=== PATIENT | female | born 1970 | race Caucasian/White ===

== ENCOUNTER 2018-02-21 12:09 | Emergency (ER) | END 2018-02-21 14:10 | disposition home or self-care (01) ==

== ENCOUNTER 2019-01-26 09:06 | Inpatient (IN) | payer BC, MEDICAID ==
[~2019-01-26] VITALS: Ht 157.5 cm; Wt 91.8 kg
[~2019-01-26 09:06] MED LIST: CEPH-443 PO; NO MEDS; PHEN-537 PO
[2019-01-26] MEDS ORDERED: morphine 2 MG INJ IV STA (13:11)
[2019-01-26] MEDS ORDERED: metroNIDAZOLE 500 MG/NS (PMX) 100 ML IVPB ONE (13:30)
[2019-01-26] MEDS ORDERED: PIPER-TAZO 3.375 GM IV (PMX) 100 ML IVPB ONE (13:30)
[2019-01-26] MEDS ORDERED: SOD CHLORIDE 0.9% 500 ML IV ONE (13:30)
--- NOTE | 2019-01-26 13:32 | ERD ---
ER Documentation Chief Complaint Chief Complaint AP X 1 WEEK HPI 48-year-old female presents the emergency department complaining of abdominal pain. Patient was in her usual state of health until approximately 1 week ago. At that time, she developed a left lower quadrant abdominal pain. She is having worsening left lower quadrant abdominal pain over the course of the week. She reports no fevers or chills. She reports no blood in her stool or diarrhea. She reports nausea with occasional nonbilious, nonbloody emesis. She reports no urinary or gynecologic symptoms. Currently she reports her pain is moderate to severe. ROS All systems reviewed and are negative except as per history of present illness. Medications Home Meds Discontinued Reported Medications [No Meds] No Conflict Check 05/12/14 Discontinued Scripts Cephalexin* (Keflex*) 500 Mg Capsule, 500 MG PO QID for 7 Days, CAP Prov:MARY CRANDALL PA-C 02/21/18 Phenazopyridine Hcl* (Pyridium*) 100 Mg Tab, 100 MG PO TID PRN for URINARY PAIN, #8 TAB Prov:MARY CRANDALL PA-C 02/21/18 Allergies Allergies: Coded Allergies: No Known Drug Allergy (Verified Allergy, Unknown, 01/26/19) PMhx/Soc History of Surgery: No (CHOLECYSTECTOMY, C-SECITON) Anesthesia Reaction: No Hx Neurological Disorder: No Hx Respiratory Disorders: No Hx Cardiac Disorders: No Hx Psychiatric Problems: No Hx Miscellaneous Medical Probl: Yes (diverticulosis) Hx Alcohol Use: Yes (occassional) Hx Substance Use: No Hx Tobacco Use: No Smoking Status: Never smoker FmHx Noncontributory for chief complaint Physical Exam Vitals Vital Signs Date Temp Pulse Resp B/P (MAP) Pulse Ox O2 O2 Flow FiO2 Time Delivery Rate 01/26/19 98.0 73 18 141/94 100 Room Air 11:58 (110) 01/26/19 97.9 88 18 137/92 99 09:13 (107) Physical Exam GENERAL: The patient is well developed and appropriate for usual state of health in no apparent distress HEENT: Pupils equal, round, and reactive to light. EOMI. There is no scleral icterus. NECK: C-spine is soft and supple, there is no meningismus. There is no cervical lymphadenopathy. LUNGS: Clear to auscultation bilaterally. There are no rales, wheezes or rhonchi. HEART: Regular rate and rhythm, no murmurs, clicks, rubs or gallops. ABDOMEN: Left lower quadrant abdominal pain. Patient has rebound with no guarding. EXTREMITIES: There is no peripheral cyanosis or edema. No focal swelling or erythema. NEURO: The patient moves all four extremities with 5/5 strength. Cranial nerves II - XII are intact. Normal gait. Alert and oriented SKIN: There is no apparent rash or petechiae. HEME/LYMPHATIC: There is no evidence of excessive bruising or lymphedema. PSYCHIATRIC: The patient does not appear anxious or depressed. Result Diagram: 01/26/19 1152 01/26/19 1152 Results 24 hrs Laboratory Tests Test 01/26/19 11:52 01/26/19 11:56 01/26/19 11:58 White Blood Count 11.8 10^3/ul Red Blood Count 4.97 10^6/ul Hemoglobin 14.2 g/dl Hematocrit 43.6 % Mean Corpuscular Volume 87.7 fl Mean Corpuscular Hemoglobin 28.6 pg Mean Corpuscular 32.6 g/dl Hemoglobin Concent Red Cell Distribution Width 12.3 % Platelet Count 303 10^3/UL Mean Platelet Volume 9.7 fl Immature Granulocytes % 0.500 % Neutrophils % 74.9 % Lymphocytes % 16.0 % Monocytes % 5.6 % Eosinophils % 2.6 % Basophils % 0.4 % Nucleated Red Blood Cells % 0.0 /100WBC Immature Granulocytes # 0.060 10^3/ul Neutrophils # 8.8 10^3/ul Lymphocytes # 1.9 10^3/ul Monocytes # 0.7 10^3/ul Eosinophils # 0.3 10^3/ul Basophils # 0.1 10^3/ul Nucleated Red Blood Cells # 0.0 10^3/ul Urine Color YELLOW Urine Clarity CLEAR Urine pH 6.0 Urine Specific [place] 1.006 Urine Ketones 1+ mg/dL Urine Nitrite NEGATIVE mg/dL Urine Bilirubin NEGATIVE mg/dL Urine Urobilinogen NEGATIVE mg/dL Urine Leukocyte Esterase NEGATIVE Dilshad/ul Urine Hemoglobin NEGATIVE mg/dL Urine Glucose NEGATIVE mg/dL Urine Total Protein NEGATIVE mg/dl Sodium Level 145 mmol/L Potassium Level 3.6 mmol/L Chloride Level 105 mmol/L Carbon Dioxide Level 26 mmol/L Anion Gap 14 Blood Urea Nitrogen 8 mg/dl Creatinine 0.66 mg/dl Est Glomerular Filtrat > 60 mL/min Rate mL/min Glucose Level 94 mg/dl Calcium Level 9.6 mg/dl Total Bilirubin 0.4 mg/dl Direct Bilirubin 0.00 mg/dl Indirect Bilirubin 0.4 mg/dl Aspartate Amino Transf (AST/SGOT) 31 IU/L Alanine 21 IU/L Aminotransferase (ALT/SGPT) Alkaline Phosphatase 133 IU/L Total Protein 8.4 g/dl Albumin 4.5 g/dl Globulin 3.90 g/dl Albumin/Globulin Ratio 1.15 Lipase 136 U/L Bedside Urine pH (LAB) 6.0 Bedside Urine Protein (LAB) Negative Bedside Urine Glucose (UA) Negative Bedside Urine Ketones (LAB) 1+ Bedside Urine Blood Negative Bedside Urine Nitrite (LAB) Negative Bedside Urine Leukocyte Esterase Negative (L POC Beta HCG, Qualitative NEGATIVE Current Medications Medications Dose Sig/Kris Start Time Status Last (Trade) Ordered Route PRN Stop Time Admin Dose Reason Admin Morphine 2 mg ONCE STAT 01/26/19 DC Sulfate IV 13:11 (morphine) 01/26/19 13:12 100 ml @ ONCE ONCE 01/26/19 Metronidazole 100 mls/hr IVPB 13:30 01/26/19 14:29 Piperacillin 100 ml @ ONCE ONCE 01/26/19 Sod/ 200 mls/hr IVPB 13:30 Tazobactam 01/26/19 13:59 Sod Sodium 500 ml @ Q1H ONCE 01/26/19 Chloride 500 mls/hr IV 13:30 01/26/19 14:29 Procedures/MDM Patient was taken to a room, seen and evaluated. Comfort measures were initiated. Diagnostic tests were ordered and reviewed. 3 LEAD RHYTHM STRIP: Normal sinus rhythm without ectopy RADIOLOGY: Reviewed with the radiologist CONSULTATION: Hospitalist was notified for admission. General surgeon was notified after CT scan was appreciated at 1330 REEVALUATION: Serial examinations of the abdomen remained without diffuse peritonitis. Diagnostic tests were discussed with the patient and arrangements were made for hospitalization MEDICAL DECISION MAKIN-year-old female presents with abdominal pain of uncertain etiology. She has a history of diverticulitis and her diagnostic t ests demonstrate evidence of ongoing diverticulitis with a fairly significant inflammatory burden. She has free fluid but no diffuse peritonitis. Patient will be admitted to the hospital for IV antibiotics, fluids, pain control as well as surgical consultation Departure Diagnosis: Primary Impression: Diverticulitis Condition: Fair [place] GOMEZ Jan 26, 2019 13:32
[2019-01-26] MEDS ORDERED: ALBUTEROL/IPRATROPIUM (NEB) 3 ML AMP HHN PRN (15:00)
[2019-01-26] MEDS ORDERED: DOCUSATE SODIUM 100 MG CAP PO PRN (15:00)
[2019-01-26] MEDS ORDERED: ACETAMINOPHEN 325 MG TAB PO PRN (15:00)
[2019-01-26] MEDS ORDERED: MAGNESIUM HYDROXIDE 30ML CUP PO PRN (15:00)
[2019-01-26] MEDS ORDERED: NITROGLYCERIN (SL) 0.4 MG TAB SL PRN (15:00)
[2019-01-26] MEDS ORDERED: ONDANSETRON 4 MG INJ IV PRN (15:00)
[2019-01-26] MEDS ORDERED: NACL 0.9% 3 ML SYG IV SCH (15:00)
[2019-01-26] MEDS ORDERED: LORAZEPAM 2 MG INJ IV PRN (15:00)
[2019-01-26] MEDS ORDERED: hydrALAzine 20 MG INJ IV PRN (15:00)
[2019-01-26] MEDS: SOD CHLORIDE 0.9% 1,000 ML IV SCH (15:51)
--- NOTE | 2019-01-26 16:21 | HP ---
DATE OF ADMISSION: 01/26/2019 IDENTIFICATION: This is a 48-year-old female. CHIEF COMPLAINT: Abdominal pain. HISTORY OF PRESENT ILLNESS: A 48-year-old female with past medical history of prior diverticulitis, cholecystectomy and who has been having abdominal pain. The patient says the symptoms have been going on for about the last 6 to 7 days. She has noted the pain in the left lower quadrant are a. Denies any fevers or chills. No upper or lower GI bleeding. She has had some mild nausea with s ome nonbilious, nonbloody vomiting symptoms occasionally. No chest pain or shortness of breath. No diarrhea or constipation. When she came in today, she was found on CT scan of abdomen and pelvis wit h marked inflammation involving the proximal to mid sigmoid colon with diverticula and adjacent fat s tranding and free fluid consistent with acute diverticulitis. There was also adjacent free air and l oculated fluid consistent with perforation and probable phlegmon, early developing abscess measuring 4.3 x 3.5 cm as well as another one of 2.4 x 1.5 cm and a call was made out to the general surgeon to come evaluate the patient for that. The patient was also given IV antibiotics and pain control medi cations and IV fluids in the ER. PAST MEDICAL HISTORY: As above. HOME MEDICATIONS: Unknown. ALLERGIES: NO KNOWN DRUG ALLERGIES. PAST SURGICAL HISTORY: Cholecystectomy, in the past. SOCIAL HISTORY: Occasional alcohol use. Denies any IV drug abuse or smoking history. FAMILY HISTORY: Noncontributory. PHYSICAL EXAMINATION: VITAL SIGNS: Today, T-max 98.0, pulse 73 to 88, respirations 18, blood pressure 141/94, saturating a t 100% room air. GENERAL: The patient is lying in bed, slightly obese, but otherwise alert, in no acute distress. HEENT: Pupils are equal, round, react to light. Extraocular muscles are intact. NECK: Supple. No thyromegaly. LUNGS: Clear to auscultation bilaterally. CARDIOVASCULAR: S1, S2 heard. No rubs, no gallops. ABDOMEN: Positive tenderness to palpation in left lower quadrant area. Mild rebound, but no guardin g. Normal bowel sounds otherwise. MUSCULOSKELETAL: No lower extremity edema bilaterally. NEUROLOGIC: No focal deficits. LABORATORIES: WBC 11.8, hemoglobin 14.2, hematocrit 43.6, platelets 303. The comprehensive metaboli c panel is essentially normal. Lipase is normal. UA shows negative nitrites, negative leukocyte est erase. Coags are normal except the PTT is a little high at 38.8. IMAGING: We mentioned CT of the abdomen and pelvis findings. ASSESSMENT AND PLAN: A 48-year-old female with abdominal pain for about 1 week with prior history of diverticulitis, now with findings of again diverticulitis with possible perforation. 1. Abdominal pain. Again secondary to diverticulitis with possible perforation and abscess formatio n. Admit the patient. Keep her n.p.o. Give her IV fluids, pain control medications. Check TSH, A1 c, lipid panel. Get a surgery consult. We will discuss with them about the need for medical managem ent versus possible operative repair given that there is a perforation. Again, vital signs are stabl e however presently. 2. Hypertension. Blood pressure is stable. Continue to monitor for now. She is on hydralazine p.r .n. systolic greater than 160. 3. Deep venous thrombosis prophylaxis, heparin subcutaneously. Dictated By: CASSY MONSALVE/WHITNEY Conf#: [id number] DID#: [id number] CC: KAMRYN LANE MD; TERRY WILSON MD;*[facility]*
--- NOTE | 2019-01-26 17:17 | CONS ---
Assessment/Plan Assessment/Plan Hospital Course (Demo Recall) 1. Proximal to mid sigmoid diverticulitis with adjacent free air and loculated fluid consistent with perforation and probable phlegmon/early developing abscess, 4.3 x 3.5 and 2.4 x 1.5 cm. -No emergent surgical intervention necessary at this time we will continue to closely monitor. -Antibiotics -GI consult (was previously seen by Dr. Jiménez) -n.p.o. 2. Abdominal pain: -Pain management 3. Mild leukocytosis: Likely 2/2 #1 -As above 4. Obesity: -diet and exercise optimization -encourage weight loss Thank you. Patient seen and examined in collaboration with Dr. Cal Frazier. Consultation Date/Type/Reason Admit Date/Time Date of Consultation: Jan 26, 2019 Type of Consult Surgical Reason for Consultation Abdominal pain, perforated diverticulitis Requesting Provider: [place] GOMEZ Date/Time of Note DATE: 01/26/19 TIME: 17:00 Hx of Present Illness Dyan Toussaint is a 48-year-old woman with past medical history of abdominal pain, diverticulitis with abscesses that were treated with antibiotics, Obesity, previous cholecystectomy, and tubal ligation who presented to the ED with a one-week history of abdominal pain. Abdominal pain is predominantly on the left lower quadrant stabbing in nature. She has reportedly she has had previous hospitalizations for similar events and has been experiencing interm ittent left lower abdominal pain that she manages conservatively with liquid diet. She has not followed up with any specialist or a regular doctor outside of the hospital. Associated symptoms include occasional nausea and vomiting, nonbloody emesis. She denies fevers, chills, congested cough, chest pain, palpitations, change in bowel or bladder habits. CT abdomen was performed showing marketed inflammation involving the proximal to mid sigmoid colon with diverticuli and adjacent fat stranding and free fluid consistent with acute diverticulitis with adjacent free air and loculated fluid consistent with perforation and probable phlegmon/early developing abscess, 4.3 x 3.5 and 2.4 x 1.5 cm. Laboratory findings significant for mild leukocytosis with WBC of 11.8. General surgery was asked to evaluate. 12 point review of systems was performed is negative except as stated in HPI. Past Medical History As above Home Meds Discontinued Reported Medications [No Meds] No Conflict Check 05/12/14 Discontinued Scripts Cephalexin* (Keflex*) 500 Mg Capsule, 500 MG PO QID for 7 Days, CAP Prov:MARY CRANDALL PA-C 02/21/18 Phenazopyridine Hcl* (Pyridium*) 100 Mg Tab, 100 MG PO TID PRN for URINARY PAIN, #8 TAB Prov:MARY CRANDALL PA-C 02/21/18 Medications Current Medications IV Flush (NS 3 ml) 3 ml PER PROTOCOL IV ; Start 01/26/19 at 15:00 Ondansetron HCl (Zofran Inj) 4 mg Q6H PRN IV NAUSEA/VOMITING; Start 01/26/19 at 15:00 Acetaminophen (Tylenol Tab) 650 mg Q6H PRN PO .PAIN 1-3 OR TEMP; Start 01/26/19 at 15:00 Acetaminophen/ Hydrocodone Bitart ([place] (5/325)) 1 tab Q6H PRN PO .MOD PAIN 4- 6; Start 01/26/19 at 15:00 Morphine Sulfate (morphine) 2 mg Q4H PRN IV .SEVERE PAIN 7-10; Start 01/26/19 at 15:00 Docusate Sodium (Colace) 100 mg Q12H PRN PO .CONSTIPATION; Start 01/26/19 at 15:00 Magnesium Hydroxide (Milk Of Mag) 30 ml DAILY PRN PO .CONSTIPATION; Start 01/26/19 at 15:00 Heparin Sodium (Porcine) (Heparin (5000 Units/1ml)) 5,000 unit Q12 SC ; Start 01/26/19 at 21:00 Lorazepam (Ativan) 0.5 mg Q6H PRN IV ANXIETY; Start 01/26/19 at 15:00 Sodium Chloride 1,000 ml @ 100 mls/hr Q10H IV Last administered on 01/26/19at 15:51; Admin Dose 100 MLS/HR; Start 01/26/19 at 14:31 Albuterol/ Ipratropium (Duoneb) 3 ml Q4H RESP THERAPY PRN HHN SHORTNESS OF BREATH; Start 01/26/19 at 15:00 Piperacillin Sod/ Tazobactam Sod 100 ml @ 200 mls/hr Q6 IVPB ; Start 01/26/19 at 18:00 Hydralazine HCl (Apresoline) 10 mg Q6H PRN IV ELEVATED BLOOD PRESSURE; Start 01/26/19 at 15:00 Nitroglycerin (Nitroglycerin (Sl Tab) 0.4 Mg) 1 tab Q5M PRN SL ANGINA; Start 01/26/19 at 15:00 Allergies: Coded Allergies: No Known Drug Allergy (Verified Allergy, Unknown, 01/26/19) Past Surgical History As above Family History Significant Family History: no pertinent family hx Social History Smoking Status: Never smoker Exam/Review of Systems Exam Vitals Vital Signs Date Temp Pulse Resp B/P (MAP) Pulse Ox O2 O2 Flow FiO2 Time Delivery Rate 01/26/19 98.0 86 16 99/77 (84) 100 Room Air 15:00 Constitutional: alert, oriented Psych: nl mood/affect; No anxiety Head: normocephalic, atraumatic Eyes: nl conjunctiva, EOMI, nl lids, nl sclera ENMT: nl external ears & nose, nl lips & teeth, mucosa pink and moist Neck: supple, non-tender Respiratory: normal air movement; No congested cough, No labored breathing Cardiovascular: regular rate and rhythm, nl pulses; No edema Gastrointestinal: soft, distended, tender (Left lower quadrant) Genitourinary - Female: nl external genitalia Musculoskeletal: nl extremities to inspection, nl gait and stance; No joint tenderness Extremities: normal pulses; No edema Neurological: nl mental status, nl speech, nl strength Skin: No rash or lesions Lymph: nl lymph nodes Results Result Diagram: 01/26/19 1152 01/26/19 1152 Results 24hrs Laboratory Tests Test 01/26/19 11:52 01/26/19 11:56 01/26/19 11:58 White Blood Count 11.8 H Red Blood Count 4.97 Hemoglobin 14.2 Hematocrit 43.6 Mean Corpuscular Volume 87.7 Mean Corpuscular Hemoglobin 28.6 L Mean Corpuscular Hemoglobin Concent 32.6 Red Cell Distribution Width 12.3 Platelet Count 303 Mean Platelet Volume 9.7 Immature Granulocytes % 0.500 H Neutrophils % 74.9 Lymphocytes % 16.0 Monocytes % 5.6 Eosinophils % 2.6 Basophils % 0.4 Nucleated Red Blood Cells % 0.0 Immature Granulocytes # 0.060 H Neutrophils # 8.8 H Lymphocytes # 1.9 Monocytes # 0.7 Eosinophils # 0.3 Basophils # 0.1 Nucleated Red Blood Cells # 0.0 Prothrombin Time 12.3 Prothrombin Time Ratio 1.0 INR International Normalized Ratio 0.90 Activated Partial Thromboplast Time 38.8 H Urine Color YELLOW Urine Clarity CLEAR Urine pH 6.0 Urine Specific [place] 1.006 Urine Ketones 1+ H Urine Nitrite NEGATIVE Urine Bilirubin NEGATIVE Urine Urobilinogen NEGATIVE Urine Leukocyte Esterase NEGATIVE Urine Hemoglobin NEGATIVE Urine Glucose NEGATIVE Urine Total Protein NEGATIVE Sodium Level 145 H Potassium Level 3.6 Chloride Level 105 Carbon Dioxide Level 26 Anion Gap 14 H Blood Urea Nitrogen 8 Creatinine 0.66 Est Glomerular Filtrat Rate mL/min > 60 Glucose Level 94 Calcium Level 9.6 Total Bilirubin 0.4 Direct Bilirubin 0.00 Indirect Bilirubin 0.4 Aspartate Amino Transf (AST/SGOT) 31 Alanine Aminotransferase (ALT/SGPT) 21 Alkaline Phosphatase 133 H Total Protein 8.4 H Albumin 4.5 Globulin 3.90 H Albumin/Globulin Ratio 1.15 Lipase 136 Free Thyroxine 1.07 Bedside Urine pH (LAB) 6.0 Bedside Urine Protein (LAB) Negative Bedside Urine Glucose (UA) Negative Bedside Urine Ketones (LAB) 1+ H Bedside Urine Blood Negative Bedside Urine Nitrite (LAB) Negative Bedside Urine Leukocyte Esterase (L Negative POC Beta HCG, Qualitative NEGATIVE Medications Medication Current Medications IV Flush (NS 3 ml) 3 ml PER PROTOCOL IV ; Start 01/26/19 at 15:00 Ondansetron HCl (Zofran Inj) 4 mg Q6H PRN IV NAUSEA/VOMITING; Start 01/26/19 at 15:00 Acetaminophen (Tylenol Tab) 650 mg Q6H PRN PO .PAIN 1-3 OR TEMP; Start 01/26/19 at 15:00 Acetaminophen/ Hydrocodone Bitart ([place] (5/325)) 1 tab Q6H PRN PO .MOD PAIN 4- 6; Start 01/26/19 at 15:00 Morphine Sulfate (morphine) 2 mg Q4H PRN IV .SEVERE PAIN 7-10; Start 01/26/19 at 15:00 Docusate Sodium (Colace) 100 mg Q12H PRN PO .CONSTIPATION; Start 01/26/19 at 15:00 Magnesium Hydroxide (Milk Of Mag) 30 ml DAILY PRN PO .CONSTIPATION; Start 01/26/19 at 15:00 Heparin Sodium (Porcine) (Heparin (5000 Units/1ml)) 5,000 unit Q12 SC ; Start 01/26/19 at 21:00 Lorazepam (Ativan) 0.5 mg Q6H PRN IV ANXIETY; Start 01/26/19 at 15:00 Sodium Chloride 1,000 ml @ 100 mls/hr Q10H IV Last administered on 01/26/19at 1 5:51; Admin Dose 100 MLS/HR; Start 01/26/19 at 14:31 Albuterol/ Ipratropium (Duoneb) 3 ml Q4H RESP THERAPY PRN HHN SHORTNESS OF BREATH; Start 01/26/19 at 15:00 Piperacillin Sod/ Tazobactam Sod 100 ml @ 200 mls/hr Q6 IVPB ; Start 01/26/19 at 18:00 Hydralazine HCl (Apresoline) 10 mg Q6H PRN IV ELEVATED BLOOD PRESSURE; Start 01/26/19 at 15:00 Nitroglycerin (Nitroglycerin (Sl Tab) 0.4 Mg) 1 tab Q5M PRN SL ANGINA; Start 01/26/19 at 15:00 EDITH TRENT NP Jan 26, 2019 17:12
[2019-01-26] MEDS: PIPER-TAZO 3.375 GM IV (PMX) 100 ML IVPB SCH ×2 (18:55→23:38)
[2019-01-26 19:56] VITALS: Ht 157.5 cm; Wt 91.8 kg
[2019-01-26 20:00] VITALS: BP 124/79; PULSE 85; RESP 19
[2019-01-26] MEDS: HEPARIN 5,000 UNIT/1 ML VIAL SC SCH (21:00)
--- NOTE | 2019-01-26 22:42 | CONS ---
DATE OF ADMISSION: 01/26/2019 DATE OF CONSULTATION: 01/26/2019 REASON FOR CONSULTATION: Antibiotic management. HISTORY OF PRESENT ILLNESS: Dyan Toussaint is a 48-year-old female well known to us from previous admis eric, who presents to the emergency room with abdominal pain. She was well until 1 week ago. She th en developed left lower quadrant abdominal pain and is having worsening left lower quadrant abdominal pain over the course of the past week. She has no fever. She reports nausea with occasional nonbil ious, nonbloody emesis. Her past problems include status post cholecystectomy, status post . On admission, her white count was 11.8, H and H of 14.2/43.6, platelet count 303,000; BUN and creatin ine 8/0.66. The patient has a past medical history of diverticulitis on CT scan of the abdomen and pelvis. She h ad marked inflammation involving the proximal to mid sigmoid colon with diverticula and adjacent fat stranding and free fluid consistent with acute diverticulitis. There was also adjacent free air, loc ulated fluid consistent with perforation and probable phlegmon. She has an early developing abscess measuring 4.3 x 3.5 cm as well as another measuring 2.4 x 1.5 cm. Call was made for General Surgery to come to evaluate the patient. The patient was placed on IV anti biotics. The patient was also seen by Shireen Renee NP, for Dr. Frazier. The patient was p reviously seen by Dr. Jiménez. The patient also has mild leukocytosis and has history of obesity. Cu rrently, she has been placed on Zosyn. She had a dose of metronidazole as well. PAST MEDICAL HISTORY: Operations as outlined. FAMILY HISTORY: Noncontributory. SOCIAL HISTORY: She does not smoke. She occasionally has a drink. She does not abuse drugs. ALLERGIES: NONE TO PENICILLIN, SULFA OR FOODS. MEDICATIONS: Per chart. REVIEW OF SYSTEMS: As per HPI. PHYSICAL EXAMINATION: GENERAL: The patient is a well-developed, well-nourished, somewhat obese female in no acute distress . VITAL SIGNS: Stable. She is afebrile. SKIN: Without generalized rash. HEENT: Within normal limits. NECK: Supple. LYMPH NODES: None palpable. CHEST: Decreased breath sounds at the bases. HEART: Without murmur or gallop. ABDOMEN: Tender to palpation in the left lower quadrant. Mild rebound. No guarding. Bowel sounds are present. EXTREMITIES: Without cyanosis, clubbing or edema. RECTAL AND GENITAL: Deferred. NEUROLOGIC: No focal neurological abnormalities. LABORATORY DATA: As noted, her white count was 11.8, hemoglobin 14.2, hematocrit 43.6, platelet coun t 303,000. ASSESSMENT AND PLAN: We are going to continue her on Zosyn, have Dr. Frazier take a look at her. Th ere is no emergent surgical intervention necessary, but she will be monitored closely. I will dictat e my findings to the hospitalist and to Dr. Cal Frazier. Dictated By: MARIA R NAM MD, JD/WHITNEY Conf#: [id number] DID#: [id number] CC: CASSY CASTELLON;*EndCC*
[2019-01-27] MEDS: morphine 2 MG INJ IV PRN ×2 (00:06→21:48)
[2019-01-27] MEDS: SOD CHLORIDE 0.9% 1,000 ML IV SCH ×3 (01:01→12:08)
[2019-01-27 02:00] VITALS: BP 112/66; PULSE 82; RESP 17
[2019-01-27] MEDS: PIPER-TAZO 3.375 GM IV (PMX) 100 ML IVPB SCH ×2 (05:30→12:08)
[2019-01-27 08:20] VITALS: BP 112/61; PULSE 86; RESP 16
[2019-01-27] MEDS: HEPARIN 5,000 UNIT/1 ML VIAL SC SCH ×2 (08:59→21:50)
--- NOTE | 2019-01-27 12:54 | PN ---
Date/Time of Note Date/Time of Note DATE: 01/27/19 TIME: 12:52 Assessment/Plan Lines/Catheters IV Catheter Type (from Nrs): Peripheral IV Assessment/Plan Chief Complaint/Hosp Course 1. Proximal to mid sigmoid diverticulitis with adjacent free air and loculated fluid consistent with perforation and probable phlegmon/early developing abscess, 4.3 x 3.5 and 2.4 x 1.5 cm. -No emergent surgical intervention necessary at this time we will continue to closely monitor. -Antibiotics per ID -GI consult (was previously seen by Dr. Jiménez) -N.p.o. 2. Abdominal pain: Improved -Pain management 3. Mild leukocytosis: Likely 2/2 #1; resolved -As above 4. Obesity: -diet and exercise optimization -encourage weight loss Thank you. Patient seen and examined in collaboration with Dr. Cal Frazier. Subjective 24 Hr Interval Summary No fevers, chills, sob, congested cough, cp, palpitations, gama, dizziness, nausea, vomiting, diarrhea, dysuria. WBC normalized. Exam/Review of Systems Vital Signs Vitals Vital Signs Date Temp Pulse Resp B/P (MAP) Pulse Ox O2 O2 Flow FiO2 Time Delivery Rate 01/27/19 98.2 86 16 112/61 95 08:20 (78) 01/27/19 Room Air 02:00 Intake and Output 01/26/19 01/26/19 01/27/19 1515:00 23:00 07:00 IntakeIntake Total 1800 ml OutputOutput Total 2 ml BalanceBalance 1798 ml Exam Free Text/Dictation Constitutional: alert, oriented Psych: nl mood/affect; No anxiety Head: normocephalic, atraumatic Eyes: nl conjunctiva, EOMI, nl lids, nl sclera ENMT: nl external ears & nose, nl lips & teeth, mucosa pink and moist Neck: supple, non-tender Respiratory: normal air movement; No congested cough, No labored breathing Cardiovascular: regular rate and rhythm, nl pulses; No edema Gastrointestinal: soft, distended, tender (Left lower quadrant-improved) Genitourinary - Female: nl external genitalia Musculoskeletal: nl extremities to inspection, nl gait and stance; No joint tenderness Extremities: normal pulses; No edema Neurological: nl mental status, nl speech, nl strength Skin: No rash or lesions Lymph: nl lymph nodes Results Result Diagram: 01/27/19 0510 01/27/19 0510 EDITH TRENT NP Jan 27, 2019 12:54
--- NOTE | 2019-01-27 14:45 | PN ---
Date/Time of Note Date/Time of Note DATE: 01/27/19 TIME: 14:42 Assessment/Plan VTE Prophylaxis Risk score (from Ns)>0 risk: 1 SCD applied (from [facility] [place]): No SCD contraindicated: other Pharmacological prophylaxis: heparin Lines/Catheters IV Catheter Type (from [facility]): Peripheral IV Assessment/Plan Hospital Course S: Patient denies abdominal pain, still n.p.o. Seen by surgery and ID teams. No fevers overnight. O: VS - see below PE: GENERAL: lying in bed, slightly obese, no acute distress. HEENT: Pupils are equal, round, react to light. Extraocular muscles are intact. NECK: Supple. No thyromegaly. LUNGS: Clear to auscultation bilaterally. CARDIOVASCULAR: S1, S2 heard. No rubs, no gallops. ABDOMEN: Positive tenderness to palpation in left lower quadrant area. Mild rebound, but no guarding. Normal bowel sounds MUSCULOSKELETAL: No lower extremity edema bilaterally. NEUROLOGIC: No focal deficits. ASSESSMENT AND PLAN: 48-year-old female with abdominal pain for about 1 week with prior history of diverticulitis, now with findings of again diverticulitis with possible perforation. 1. Abdominal pain. Again secondary to diverticulitis with possible perforation and abscess formation. -Continue to keep patient n.p.o, continue IV fluids, pain control medicati ons, broad-spectrum antibiotics -Follow-up recommendations for surgery consult -per them no surgical indication at this time -Per surgery recommendations, they want GI consult which we will obtain. GI team has already indicated no colonoscopy at this time secondary to further worsening perforation risk. 2. Hypertension. Blood pressure is stable. - Continue to monitor for now, hydralazine p.r.n. systolic greater than 160. 3. Deep venous thrombosis prophylaxis, heparin subcutaneously. Result Diagram: 01/27/19 0510 01/27/19 0510 Results 24hrs Laboratory Tests Test 01/27/19 05:10 White Blood Count 10.4 Red Blood Count 4.18 L Hemoglobin 12.0 Hematocrit 36.2 L Mean Corpuscular Volume 86.6 Mean Corpuscular Hemoglobin 28.7 L Mean Corpuscular Hemoglobin Concent 33.1 Red Cell Distribution Width 12.3 Platelet Count 261 Mean Platelet Volume 10.0 Immature Granulocytes % 0.400 Neutrophils % 77.2 H Lymphocytes % 12.2 L Monocytes % 7.0 Eosinophils % 2.8 Basophils % 0.4 Nucleated Red Blood Cells % 0.0 Immature Granulocytes # 0.040 H Neutrophils # 8.0 H Lymphocytes # 1.3 Monocytes # 0.7 Eosinophils # 0.3 Basophils # 0.0 Nucleated Red Blood Cells # 0.0 Sodium Level 143 Potassium Level 3.5 Chloride Level 107 Carbon Dioxide Level 23 Anion Gap 13 Blood Urea Nitrogen 8 Creatinine 0.62 Est Glomerular Filtrat Rate mL/min > 60 Glucose Level 89 Hemoglobin A1c 5.3 Calcium Level 8.6 Phosphorus Level 3.8 Magnesium Level 1.9 Triglycerides Level 122 Cholesterol Level 147 LDL Cholesterol, Calculated 88 HDL Cholesterol 35 L Cholesterol/HDL Ratio 4.2 Thyroid Stimulating Hormone (TSH) 2.290 Exam/Review of Systems Exam Vitals Vital Signs Date Temp Pulse Resp B/P (MAP) Pulse Ox O2 O2 Flow FiO2 Time Delivery Rate 01/27/19 98.2 86 16 112/61 95 08:20 (78) 01/27/19 Room Air 02:00 Intake and Output 01/26/19 01/26/19 01/27/19 1515:00 23:00 07:00 IntakeIntake Total 1800 ml OutputOutput Total 2 ml BalanceBalance 1798 ml Results Results 24hrs Laboratory Tests Test 01/27/19 05:10 White Blood Count 10.4 Red Blood Count 4.18 L Hemoglobin 12.0 Hematocrit 36.2 L Mean Corpuscular Volume 86.6 Mean Corpuscular Hemoglobin 28.7 L Mean Corpuscular Hemoglobin Concent 33.1 Red Cell Distribution Width 12.3 Platelet Count 261 Mean Platelet Volume 10.0 Immature Granulocytes % 0.400 Neutrophils % 77.2 H Lymphocytes % 12.2 L Monocytes % 7.0 Eosinophils % 2.8 Basophils % 0.4 Nucleated Red Blood Cells % 0.0 Immature Granulocytes # 0.040 H Neutrophils # 8.0 H Lymphocytes # 1.3 Monocytes # 0.7 Eosinophils # 0.3 Basophils # 0.0 Nucleated Red Blood Cells # 0.0 Sodium Level 143 Potassium Level 3.5 Chloride Level 107 Carbon Dioxide Level 23 Anion Gap 13 Blood Urea Nitrogen 8 Creatinine 0.62 Est Glomerular Filtrat Rate mL/min > 60 Glucose Level 89 Hemoglobin A1c 5.3 Calcium Level 8.6 Phosphorus Level 3.8 Magnesium Level 1.9 Triglycerides Level 122 Cholesterol Level 147 LDL Cholesterol, Calculated 88 HDL Cholesterol 35 L Cholesterol/HDL Ratio 4.2 Thyroid Stimulating Hormone (TSH) 2.290 Medications Medication Current Medications IV Flush (NS 3 ml) 3 ml PER PROTOCOL IV ; Start 01/26/19 at 15:00 Ondansetron HCl (Zofran Inj) 4 mg Q6H PRN IV NAUSEA/VOMITING; Start 01/26/19 at 15:00 Acetaminophen (Tylenol Tab) 650 mg Q6H PRN PO .PAIN 1-3 OR TEMP; Start 01/26/19 at 15:00 Acetaminophen/ Hydrocodone Bitart ([place] (5/325)) 1 tab Q6H PRN PO .MOD PAIN 4- 6; Start 01/26/19 at 15:00 Morphine Sulfate (morphine) 2 mg Q4H PRN IV .SEVERE PAIN 7-10 Last administered on 01/27/19at 00:06; Admin Dose 2 MG; Start 01/26/19 at 15:00 Docusate Sodium (Colace) 100 mg Q12H PRN PO .CONSTIPATION; Start 01/26/19 at 1 5:00 Magnesium Hydroxide (Milk Of Mag) 30 ml DAILY PRN PO .CONSTIPATION; Start 01/26/19 at 15:00 Heparin Sodium (Porcine) (Heparin (5000 Units/1ml)) 5,000 unit Q12 SC Last administered on 01/27/19at 08:59; Admin Dose 5,000 UNIT; Start 01/26/19 at 21:00 Lorazepam (Ativan) 0.5 mg Q6H PRN IV ANXIETY; Start 01/26/19 at 15:00 Sodium Chloride 1,000 ml @ 100 mls/hr Q10H IV Last administered on 01/27/19at 12:08; Admin Dose 100 MLS/HR; Start 01/26/19 at 14:31 Albuterol/ Ipratropium (Duoneb) 3 ml Q4H RESP THERAPY PRN HHN SHORTNESS OF BREATH; Start 01/26/19 at 15:00 Piperacillin Sod/ Tazobactam Sod 100 ml @ 200 mls/hr Q6 IVPB Last administered on 01/27/19at 12:08; Admin Dose 200 MLS/HR; Start 01/26/19 at 18:00 Hydralazine HCl (Apresoline) 10 mg Q6H PRN IV ELEVATED BLOOD PRESSURE; Start 3/27/19 at 15:00 Nitroglycerin (Nitroglycerin (Sl Tab) 0.4 Mg) 1 tab Q5M PRN SL ANGINA; Start 01/26/19 at 15:00 Influenza Virus Vaccine Quadrival (Fluzone) 0.5 ml ONCE ONCE IM* ; Start 01/28/19 at 10:00; Stop 01/28/19 at 10:01 CASSY CASTELLON Jan 27, 2019 14:45
[2019-01-27 15:00] VITALS: BP 123/59; PULSE 89; RESP 17
[2019-01-27] MEDS: HYDROCODONE/APAP (5/325) TAB PO PRN (15:54)
--- NOTE | 2019-01-27 17:19 | CONS ---
Assessment/Plan Assessment/Plan Hospital Course (Demo Recall) Patient is alert looks comfortable, complaining of lower abdominal pain worse on activity, no fevers overnight. WBC 10.4 neutrophils 77.2 BUN 8 creatinine 0.62 Microbiology: Urine culture negative CT abdomen pelvis revealed mild and marked inflammation of proximal to mid sigmoid colon consistent with acute diverticulitis with perforation and probable phlegmon/early developing abscess measuring 4.3 x 3.5 cm and 2.4 x 1.5 cm that may not be drainable at this time. No gross evidence of bowel obstruction. Please see full report in the chart Antimicrobials: Zosyn Physical examination: This is a morbidly obese well-developed middle-aged woman who is awake in no distress. Head atraumatic normocephalic. Neck is supple chest rise symmetrical breath sounds diminished bases. Heart: S1-S2. Abdomen obese soft bowel sounds hypoactive. Extremities without cyanosis Assessment: 1. Acute perforated diverticulitis 2. Morbid obesity Plan: The patient is clinically stable, surgery follows, will change antibiotics to Vanco Merrem for better coverage Consultation Date/Type/Reason Admit Date/Time Jan 26, 2019 at 13:51 Initial Consult Date 01/26/19 Type of Consult id Requesting Provider: [place] GOMEZ Date/Time of Note DATE: 01/27/19 TIME: 17:19 Exam/Review of Systems Exam Vitals Vital Signs Date Temp Pulse Resp B/P (MAP) Pulse Ox O2 O2 Flow FiO2 Time Delivery Rate 01/27/19 98.2 86 16 112/61 95 08:20 (78) 01/27/19 Room Air 02:00 Intake and Output 01/26/19 01/26/19 01/27/19 1515:00 23:00 07:00 IntakeIntake Total 1800 ml OutputOutput Total 2 ml BalanceBalance 1798 ml Results Result Diagram: 01/27/19 0510 01/27/19 0510 Results 24hrs Laboratory Tests Test 01/27/19 05:10 White Blood Count 10.4 Red Blood Count 4.18 L Hemoglobin 12.0 Hematocrit 36.2 L Mean Corpuscular Volume 86.6 Mean Corpuscular Hemoglobin 28.7 L Mean Corpuscular Hemoglobin Concent 33.1 Red Cell Distribution Width 12.3 Platelet Count 261 Mean Platelet Volume 10.0 Immature Granulocytes % 0.400 Neutrophils % 77.2 H Lymphocytes % 12.2 L Monocytes % 7.0 Eosinophils % 2.8 Basophils % 0.4 Nucleated Red Blood Cells % 0.0 Immature Granulocytes # 0.040 H Neutrophils # 8.0 H Lymphocytes # 1.3 Monocytes # 0.7 Eosinophils # 0.3 Basophils # 0.0 Nucleated Red Blood Cells # 0.0 Sodium Level 143 Potassium Level 3.5 Chloride Level 107 Carbon Dioxide Level 23 Anion Gap 13 Blood Urea Nitrogen 8 Creatinine 0.62 Est Glomerular Filtrat Rate mL/min > 60 Glucose Level 89 Hemoglobin A1c 5.3 Calcium Level 8.6 Phosphorus Level 3.8 Magnesium Level 1.9 Triglycerides Level 122 Cholesterol Level 147 LDL Cholesterol, Calculated 88 HDL Cholesterol 35 L Cholesterol/HDL Ratio 4.2 Thyroid Stimulating Hormone (TSH) 2.290 Medications Medication Current Medications IV Flush (NS 3 ml) 3 ml PER PROTOCOL IV ; Start 01/26/19 at 15:00 Ondansetron HCl (Zofran Inj) 4 mg Q6H PRN IV NAUSEA/VOMITING; Start 01/26/19 at 15:00 Acetaminophen (Tylenol Tab) 650 mg Q6H PRN PO .PAIN 1-3 OR TEMP; Start 01/26/19 at 15:00 Acetaminophen/ Hydrocodone Bitart ([place] (5/325)) 1 tab Q6H PRN PO .MOD PAIN 4- 6 Last administered on 01/27/19at 15:54; Admin Dose 1 TAB; Start 01/26/19 at 15:00 Morphine Sulfate (morphine) 2 mg Q4H PRN IV .SEVERE PAIN 7-10 Last administered on 01/27/19at 00:06; Admin Dose 2 MG; Start 01/26/19 at 15:00 Docusate Sodium (Colace) 100 mg Q12H PRN PO .CONSTIPATION; Start 01/26/19 at 15:00 Magnesium Hydroxide (Milk Of Mag) 30 ml DAILY PRN PO .CONSTIPATION; Start 01/26/19 at 15:00 Heparin Sodium (Porcine) (Heparin (5000 Units/1ml)) 5,000 unit Q12 SC Last administered on 01/27/19at 08:59; Admin Dose 5,000 UNIT; Start 01/26/19 at 21:00 Lorazepam (Ativan) 0.5 mg Q6H PRN IV ANXIETY; Start 01/26/19 at 15:00 Sodium Chloride 1,000 ml @ 100 mls/hr Q10H IV Last administered on 01/27/19at 12:08; Admin Dose 100 MLS/HR; Start 01/26/19 at 14:31 Albuterol/ Ipratropium (Duoneb) 3 ml Q4H RESP THERAPY PRN HHN SHORTNESS OF BREATH; Start 01/26/19 at 15:00 Piperacillin Sod/ Tazobactam Sod 100 ml @ 200 mls/hr Q6 IVPB Last administered on 01/27/19at 12:08; Admin Dose 200 MLS/HR; Start 01/26/19 at 18:00 Hydralazine HCl (Apresoline) 10 mg Q6H PRN IV ELEVATED BLOOD PRESSURE; Start 01/26/19 at 15:00 Nitroglycerin (Nitroglycerin (Sl Tab) 0.4 Mg) 1 tab Q5M PRN SL ANGINA; Start 01/26/19 at 15:00 Influenza Virus Vaccine Quadrival (Fluzone) 0.5 ml ONCE ONCE IM* ; Start 01/28/19 at 10:00; Stop 01/28/19 at 10:01 KOKO CALDERON NP Jan 27, 2019 17:19
[2019-01-27] MEDS ORDERED: VANCOMYCIN IV PER PHARMACY XX SCH (17:30)
[2019-01-27] MEDS ORDERED: VANCOMYCIN HCL 1.75 GM in SOD CHLORIDE 0.9% 500 ML IVPB ONE (20:00)
[2019-01-27 20:10] VITALS: BP 111/58; PULSE 81; RESP 16
[2019-01-27] MEDS: MEROPENEM 1 GM/50ML(PMX) 50 ML IVPB SCH (21:47)
[2019-01-28 02:00] VITALS: BP 118/61; PULSE 76; RESP 16
[2019-01-28] MEDS: SOD CHLORIDE 0.9% 1,000 ML IV SCH (02:37)
[2019-01-28] MEDS: MEROPENEM 1 GM/50ML(PMX) 50 ML IVPB SCH ×3 (05:37→21:58)
[2019-01-28 08:27] VITALS: BP 94/59; PULSE 82; RESP 18
[2019-01-28] MEDS: HEPARIN 5,000 UNIT/1 ML VIAL SC SCH ×2 (08:41→21:58)
[2019-01-28] MEDS: VANCOMYCIN 1 GM 250 ML IVPB SCH ×2 (10:44→23:20)
--- NOTE | 2019-01-28 11:50 | PN ---
Date/Time of Note Date/Time of Note DATE: 01/28/19 TIME: 11:49 Assessment/Plan Lines/Catheters IV Catheter Type (from Nrs): Peripheral IV Assessment/Plan Chief Complaint/Hosp Course 1. Proximal to mid sigmoid diverticulitis with adjacent free air and loculated fluid consistent with perforation and probable phlegmon/early developing abscess, 4.3 x 3.5 and 2.4 x 1.5 cm. -No emergent surgical intervention necessary at this time we will continue to closely monitor. -Antibiotics per ID -GI consult (was previously seen by Dr. Jiménez) pending -We will start on liquid diet today 2. Abdominal pain: Improved -Pain management 3. Mild leukocytosis: Likely 2/2 #1; resolved -As above 4. Obesity: -diet and exercise optimization -encourage weight loss Thank you. Patient seen and examined in collaboration with Dr. Cal Frazier. Subjective 24 Hr Interval Summary Feels much better. No fevers, chills, sob, congested cough, cp, palpitations, gama, dizziness, nausea, vomiting, diarrhea, dysuria. Exam/Review of Systems Vital Signs Vitals Vital Signs Date Temp Pulse Resp B/P (MAP) Pulse Ox O2 O2 Flow FiO2 Time Delivery Rate 01/28/19 98.7 82 18 94/59 (71) 97 08:27 01/27/19 Room Air 02:00 Intake and Output 01/27/19 01/27/19 01/28/19 1515:00 23:00 07:00 IntakeIntake Total 500 ml 1050 ml 800 ml BalanceBalance 500 ml 1050 ml 800 ml Exam Free Text/Dictation Constitutional: alert, oriented Psych: nl mood/affect; No anxiety Head: normocephalic, atraumatic Eyes: nl conjunctiva, EOMI, nl lids, nl sclera ENMT: nl external ears & nose, nl lips & teeth, mucosa pink and moist Neck: supple, non-tender Respiratory: normal air movement; No congested cough, No labored breathing Cardiovascular: regular rate and rhythm, nl pulses; No edema Gastrointestinal: soft, non-distended, tender (Left lower quadrant-much improved) Genitourinary - Female: nl external genitalia Musculoskeletal: nl extremities to inspection, nl gait and stance; No joint tenderness Extremities: normal pulses; No edema Neurological: nl mental status, nl speech, nl strength Skin: No rash or lesions Lymph: nl lymph nodes Results Result Diagram: 01/28/19 0504 01/28/19 0504 EDITH TRENT NP Jan 28, 2019 11:50
--- NOTE | 2019-01-28 11:56 | CONS ---
Assessment/Plan Assessment/Plan Hospital Course (Demo Recall) Patient is alert looks comfortable, no fevers Microbiology: Urine culture negative CT abdomen pelvis revealed mild and marked inflammation of proximal to mid sigmoid colon consistent with acute diverticulitis with perforation and probable phlegmon/early developing abscess measuring 4.3 x 3.5 cm and 2.4 x 1.5 cm that may not be drainable at this time. No gross evidence of bowel obstruction. Please see full report in the chart Antimicrobials: Miguelo Dorothy Physical examination: This is a morbidly obese well-developed middle-aged woman who is awake in no distress. Head atraumatic normocephalic. Neck is supple chest rise symmetrical breath sounds diminished bases. Heart: S 1-S2. Abdomen obese soft bowel sounds hypoactive. Extremities without cyanosis Assessment: 1. Acute perforated diverticulitis 2. Morbid obesity Plan: Remains stable, surgery follows, continue IV abx, recommend repeat CT abdomen after 7 days abx therapy Consultation Date/Type/Reason Admit Date/Time Jan 26, 2019 at 13:51 Initial Consult Date 01/26/19 Type of Consult id Requesting Provider: [place] GOMEZ Date/Time of Note DATE: 01/28/19 TIME: 11:55 Exam/Review of Systems Exam Vitals Vital Signs Date Temp Pulse Resp B/P (MAP) Pulse Ox O2 O2 Flow FiO2 Time Delivery Rate 01/28/19 98.7 82 18 94/59 (71) 97 08:27 01/27/19 Room Air 02:00 Intake and Output 01/27/19 01/27/19 01/28/19 1515:00 23:00 07:00 IntakeIntake Total 500 ml 1050 ml 800 ml BalanceBalance 500 ml 1050 ml 800 ml Results Result Diagram: 01/28/19 0504 01/28/19 0504 Results 24hrs Laboratory Tests Test 01/28/19 05:04 White Blood Count 10.5 Red Blood Count 4.14 L Hemoglobin 11.8 L Hematocrit 35.9 L Mean Corpuscular Volume 86.7 Mean Corpuscular Hemoglobin 28.5 L Mean Corpuscular Hemoglobin Concent 32.9 Red Cell Distribution Width 12.1 Platelet Count 263 Mean Platelet Volume 10.0 Immature Granulocytes % 0.300 Neutrophils % 76.5 Lymphocytes % 15.8 Monocytes % 5.0 Eosinophils % 2.1 Basophils % 0.3 Nucleated Red Blood Cells % 0.0 Immature Granulocytes # 0.030 Neutrophils # 8.0 H Lymphocytes # 1.7 Monocytes # 0.5 Eosinophils # 0.2 Basophils # 0.0 Nucleated Red Blood Cells # 0.0 Sodium Level 142 Potassium Level 3.7 Chloride Level 111 H Carbon Dioxide Level 17 L Anion Gap 14 H Blood Urea Nitrogen 7 Creatinine 0.55 Est Glomerular Filtrat Rate mL/min > 60 Glucose Level 60 #L Calcium Level 8.8 Medications Medication Current Medications IV Flush (NS 3 ml) 3 ml PER PROTOCOL IV ; Start 01/26/19 at 15:00 Ondansetron HCl (Zofran Inj) 4 mg Q6H PRN IV NAUSEA/VOMITING; Start 01/26/19 at 15:00 Acetaminophen (Tylenol Tab) 650 mg Q6H PRN PO .PAIN 1-3 OR TEMP; Start 01/26/19 at 15:00 Acetaminophen/ Hydrocodone Bitart ([place] (5/325)) 1 tab Q6H PRN PO .MOD PAIN 4- 6 Last administered on 01/27/19at 15:54; Admin Dose 1 TAB; Start 01/26/19 at 15:00 Morphine Sulfate (morphine) 2 mg Q4H PRN IV .SEVERE PAIN 7-10 Last administered on 01/27/19at 21:48; Admin Dose 2 MG; Start 01/26/19 at 15:00 Docusate Sodium (Colace) 100 mg Q12H PRN PO .CONSTIPATION; Start 01/26/19 at 15:00 Magnesium Hydroxide (Milk Of Mag) 30 ml DAILY PRN PO .CONSTIPATION; Start 01/01 05/20 at 15:00 Heparin Sodium (Porcine) (Heparin (5000 Units/1ml)) 5,000 unit Q12 SC Last administered on 01/28/19at 08:41; Admin Dose 5,000 UNIT; Start 01/26/19 at 21:00 Lorazepam (Ativan) 0.5 mg Q6H PRN IV ANXIETY; Start 01/26/19 at 15:00 Sodium Chloride 1,000 ml @ 100 mls/hr Q10H IV Last administered on 01/28/19at 02:37; Admin Dose 100 MLS/HR; Start 01/26/19 at 14:31 Albuterol/ Ipratropium (Duoneb) 3 ml Q4H RESP THERAPY PRN HHN SHORTNESS OF BREATH; Start 01/26/19 at 15:00 Hydralazine HCl (Apresoline) 10 mg Q6H PRN IV ELEVATED BLOOD PRESSURE; Start 01/26/19 at 15:00 Nitroglycerin (Nitroglycerin (Sl Tab) 0.4 Mg) 1 tab Q5M PRN SL ANGINA; Start 01/26/19 at 15:00 Meropenem/Sodium Chloride 50 ml @ 100 mls/hr Q8 IVPB Last administered on 01/28/19at 05:37; Admin Dose 100 MLS/HR; Start 01/27/19 at 22:00 Vancomycin HCl (Vanco Iv Per Pharmacy) VANCOMYCIN PER PHARMACY PER PROTOCOL XX ; Start 01/27/19 at 17:30 Vancomycin HCl 250 ml @ 125 mls/hr Q12H IVPB Last administered on 01/28/19at 10 :44; Admin Dose 125 MLS/HR; Start 01/28/19 at 10:00 Miscellaneous Information (*Rx Drug Level Order Reminder*) VANCOMYCIN TROUGH AT 0,900 0900 TROUGH ONCE XX ; Start 01/29/19 at 09:00; Stop 01/29/19 at 09:01 KOKO CALDERON NP Jan 28, 2019 11:56
--- NOTE | 2019-01-28 13:59 | PN ---
Date/Time of Note Date/Time of Note DATE: 01/28/19 TIME: 13:57 Assessment/Plan VTE Prophylaxis Risk score (from Ns)>0 risk: 1 SCD applied (from Ns): No SCD contraindicated: other Pharmacological prophylaxis: heparin Lines/Catheters [facility] ([facility] Peripheral IV Assessment/Plan Hospital Course S: Patient denies abdominal pain, seen by surgery team and ID team. O: VS - see below PE: GENERAL: lying in bed, slightly obese, no acute distress. HEENT: Pupils are equal, round, react to light. Extraocular muscles are intact. NECK: Supple. No thyromegaly. LUNGS: Clear to auscultation bilaterally. CARDIOVASCULAR: S1, S2 heard. No rubs, no gallops. ABDOMEN: Positive tenderness to palpation in left lower quadrant area. Mild rebound, but no guarding. Normal bowel sounds MUSCULOSKELETAL: No lower extremity edema bilaterally. NEUROLOGIC: No focal deficits. ASSESSMENT AND PLAN: 48-year-old female with abdominal pain for about 1 week with prior history of diverticulitis, now with findings of again diverticulitis with possible perforation. 1. Abdominal pain-symptoms resolving now, again secondary to diverticulitis with possible perforation and abscess formation. -Continue to keep patient n.p.o, continue IV fluids, pain control medications, broad-spectrum antibiotics as recommended by ID team -Follow-up recommendations for surgery consult -per them no surgical indication at this time, they will also determine when patient is okay to start diet -Per surgery recommendations, pending GI consult, GI team has already indicated no colonoscopy at this time secondary to further worsening perforation risk. 2. Hypertension. Blood pressure is stable. - Continue to monitor for now, hydralazine p.r.n. systolic greater than 160. 3. Deep venous thrombosis prophylaxis, heparin subcutaneously. Result Diagram: 01/28/19 0504 01/28/19 0504 Results 24hrs Laboratory Tests Test 01/28/19 05:04 White Blood Count 10.5 Red Blood Count 4.14 L Hemoglobin 11.8 L Hematocrit 35.9 L Mean Corpuscular Volume 86.7 Mean Corpuscular Hemoglobin 28.5 L Mean Corpuscular Hemoglobin Concent 32.9 Red Cell Distribution Width 12.1 Platelet Count 263 Mean Platelet Volume 10.0 Immature Granulocytes % 0.300 Neutrophils % 76.5 Lymphocytes % 15.8 Monocytes % 5.0 Eosinophils % 2.1 Basophils % 0.3 Nucleated Red Blood Cells % 0.0 Immature Granulocytes # 0.030 Neutrophils # 8.0 H Lymphocytes # 1.7 Monocytes # 0.5 Eosinophils # 0.2 Basophils # 0.0 Nucleated Red Blood Cells # 0.0 Sodium Level 142 Potassium Level 3.7 Chloride Level 111 H Carbon Dioxide Level 17 L Anion Gap 14 H Blood Urea Nitrogen 7 Creatinine 0.55 Est Glomerular Filtrat Rate mL/min > 60 Glucose Level 60 #L Calcium Level 8.8 Exam/Review of Systems Exam Vitals Vital Signs Date Temp Pulse Resp B/P (MAP) Pulse Ox O2 O2 Flow FiO2 Time Delivery Rate 01/28/19 98.7 82 18 94/59 (71) 97 08:27 01/27/19 Room Air 02:00 Intake and Output 01/27/19 01/27/19 01/28/19 1515:00 23:00 07:00 IntakeIntake Total 500 ml 1050 ml 800 ml BalanceBalance 500 ml 1050 ml 800 ml Results Results 24hrs Laboratory Tests Test 01/28/19 05:04 White Blood Count 10.5 Red Blood Count 4.14 L Hemoglobin 11.8 L Hematocrit 35.9 L Mean Corpuscular Volume 86.7 Mean Corpuscular Hemoglobin 28.5 L Mean Corpuscular Hemoglobin Concent 32.9 Red Cell Distribution Width 12.1 Platelet Count 263 Mean Platelet Volume 10.0 Immature Granulocytes % 0.300 Neutrophils % 76.5 Lymphocytes % 15.8 Monocytes % 5.0 Eosinophils % 2.1 Basophils % 0.3 Nucleated Red Blood Cells % 0.0 Immature Granulocytes # 0.030 Neutrophils # 8.0 H Lymphocytes # 1.7 Monocytes # 0.5 Eosinophils # 0.2 Basophils # 0.0 Nucleated Red Blood Cells # 0.0 Sodium Level 142 Potassium Level 3.7 Chloride Level 111 H Carbon Dioxide Level 17 L Anion Gap 14 H Blood Urea Nitrogen 7 Creatinine 0.55 Est Glomerular Filtrat Rate mL/min > 60 Glucose Level 60 #L Calcium Level 8.8 Medications Medication Current Medications IV Flush (NS 3 ml) 3 ml PER PROTOCOL IV ; Start 01/26/19 at 15:00 Ondansetron HCl (Zofran Inj) 4 mg Q6H PRN IV NAUSEA/VOMITING; Start 01/26/19 at 15:00 Acetaminophen (Tylenol Tab) 650 mg Q6H PRN PO .PAIN 1-3 OR TEMP; Start 01/26/19 at 15:00 Acetaminophen/ Hydrocodone Bitart ([place] (5/325)) 1 tab Q6H PRN PO .MOD PAIN 4- 6 Last administered on 01/27/19at 15:54; Admin Dose 1 TAB; Start 01/26/19 at 15:00 Morphine Sulfate (morphine) 2 mg Q4H PRN IV .SEVERE PAIN 7-10 Last administered on 01/27/19at 21:48; Admin Dose 2 MG; Start 01/26/19 at 15:00 Docusate Sodium (Colace) 100 mg Q12H PRN PO .CONSTIPATION; Start 01/26/19 at 15:00 Magnesium Hydroxide (Milk Of Mag) 30 ml DAILY PRN PO .CONSTIPATION; Start 01/26/19 at 15:00 Heparin Sodium (Porcine) (Heparin (5000 Units/1ml)) 5,000 unit Q12 SC Last administered on 01/28/19at 08:41; Admin Dose 5,000 UNIT; Start 01/26/19 at 21:00 Lorazepam (Ativan) 0.5 mg Q6H PRN IV ANXIETY; Start 01/26/19 at 15:00 Albuterol/ Ipratropium (Duoneb) 3 ml Q4H RESP THERAPY PRN HHN SHORTNESS OF ALFREDO ATH; Start 01/26/19 at 15:00 Hydralazine HCl (Apresoline) 10 mg Q6H PRN IV ELEVATED BLOOD PRESSURE; Start 01/26/19 at 15:00 Nitroglycerin (Nitroglycerin (Sl Tab) 0.4 Mg) 1 tab Q5M PRN SL ANGINA; Start 01/26/19 at 15:00 Meropenem/Sodium Chloride 50 ml @ 100 mls/hr Q8 IVPB Last administered on 01/01 07/21at 05:37; Admin Dose 100 MLS/HR; Start 01/27/19 at 22:00 Vancomycin HCl (Vanco Iv Per Pharmacy) VANCOMYCIN PER PHARMACY PER PROTOCOL XX ; Start 01/27/19 at 17:30 Vancomycin HCl 250 ml @ 125 mls/hr Q12H IVPB Last administered on 01/28/19at 10:44; Admin Dose 125 MLS/HR; Start 01/28/19 at 10:00 Miscellaneous Information (*Rx Drug Level Order Reminder*) VANCOMYCIN TROUGH AT 0,900 0900 TROUGH ONCE XX ; Start 01/29/19 at 09:00; Stop 01/29/19 at 09:01 Sodium Chloride 1,000 ml @ 75 mls/hr [id number] IV ; Start 01/28/19 at 14:00; Status CASSY CASTANO Jan 28, 2019 13:59
[2019-01-28 14:32] VITALS: BP 131/75; PULSE 89; RESP 18
--- NOTE | 2019-01-28 14:40 | CONS ---
DATE OF ADMISSION: 01/26/2019 DATE OF CONSULTATION: TYPE OF CONSULTATION: Gastroenterology. Dear Dr. Castellon: Thank you for asking me to see Mrs. Toussaint in GI consultation. HISTORY OF PRESENT ILLNESS: The patient, as you know, is a 48-year-old female, is admitted to the hospital because of left lower quadrant pain which she has been experiencing for the past 7 to 10 days. Because of the persistent pain, she came to the hospital and it showed no history of nause a, vomiting, no GI bleeding. CAT scan of the abdomen shows diverticulitis with perforation with a lo calized area as represented by the phlegmon. PAST MEDICAL HISTORY: Positive for cholecystectomy and . She has a history of diverticulit is in the past. PHYSICAL EXAMINATION: GENERAL: The patient is a 48-year-old female who at this time appears to be alert, moderate ly well built. VITAL SIGNS: Afebrile, temperature 98.7, blood pressure 94/59. CARDIOVASCULAR: Normal heart sounds. RESPIRATORY: Normal breath sounds. ABDOMEN: Shows soft abdomen with very minimal left lower quadrant tenderness. LABORATORY WORKUP: Shows WBC is 10,500, hemoglobin 11.8. The alkaline phosphatase is 133, which is a little elevated, potassium 3.6. CAT scan of the abdomen as mentioned above, diverticulitis with pe rforation. CLINICAL IMPRESSION: Diverticulitis with a localized perforation and with a phlegmon formation. PLAN: Agree with antibiotic therapy and if this improves, maybe in 2 months or so, we need to do a c olonoscopy to rule out colon cancer. Once again Dr. Castellon, thank you for this consultation. Dictated By: NATHALIE GASTELUM/WHITNEY Conf#: [id number] DID#: [id number] CC: CASSY CASTELLON;*EndCC*
[2019-01-28] MEDS: SOD CHLORIDE 0.45% 1,000 ML IV SCH (15:04)
[2019-01-28] MEDS: HYDROCODONE/APAP (5/325) TAB PO PRN (18:50)
[2019-01-28 19:45] VITALS: BP 112/71; PULSE 84; RESP 16
[2019-01-29 02:00] VITALS: BP 103/57; PULSE 72; RESP 18
[2019-01-29] MEDS: MEROPENEM 1 GM/50ML(PMX) 50 ML IVPB SCH ×3 (07:01→20:38)
[2019-01-29] MEDS: SOD CHLORIDE 0.45% 1,000 ML IV SCH ×2 (07:02→16:40)
[2019-01-29 08:34] VITALS: BP 111/65; PULSE 94; RESP 18
[2019-01-29] MEDS: HEPARIN 5,000 UNIT/1 ML VIAL SC SCH ×2 (09:05→20:48)
[2019-01-29] MEDS: VANCOMYCIN 1 GM 250 ML IVPB SCH (09:55)
[2019-01-29 13:13] VITALS: BP 120/67; PULSE 85; RESP 18
--- NOTE | 2019-01-29 13:16 | CONS ---
Assessment/Plan Assessment/Plan Hospital Course (Demo Recall) ID PROGRESS NOTE CURRENT ABX: DAY # => Vanco IV, Merrem 01/29/19 0544 01/29/19 0544 24H INTERVAL SUMMARY * Awake, alert, responsive, resting in bed, no fevers, VSS, still has some ABD pain, WBC normal DIAGNOSTIC IMAGING * CT abdomen pelvis revealed mild and marked inflammation of proximal to mid sigmoid colon consistent with acute diverticulitis with perforation and probable phlegmon/early developing abscess measuring 4.3 x 3.5 cm and 2.4 x 1.5 cm that may not be drainable at this time. No gross evidence of bowel obstruction. Please see full report in the chart MICRO/OTHER * Microbiology: Urine culture negative PHYSICAL EXAMINATION: GENERAL: VSS, NAD, morbid obese HEENT: AT, NC, anicteric, NECK: Supple, CHEST: Equal chest rise bilaterally, without dyspnea on observation HEART: Pulse RRR ABDOMEN: Soft / NT EXTREMITIES: Warm, dry SKIN: No rash, no diaphoresis ID ASSESSMENT 48 yo F admit with: 1. Acute perforated diverticulitis 2. Morbid obesity 3. s/p SIRS w/low grade temps and mild leukocytosis = RESOLVED ABX ALLERGIES: None to ABX INVASIVES: PIV CURRENT ABX: DAY # => Vanco IV, Merrem ID RECOMMENDATIONS/PLAN: 1. Continue current ABX 2. Repeat CT abdomen after 7 days abx therapy . Consultation Date/Type/Reason Admit Date/Time Jan 26, 2019 at 13:51 Initial Consult Date 01/26/19 Requesting Provider: AZ GOMEZ Date/Time of Note DATE: 01/29/19 TIME: 13:16 Exam/Review of Systems Exam Vitals Vital Signs Date Temp Pulse Resp B/P (MAP) Pulse Ox O2 O2 Flow FiO2 Time Delivery Rate 01/29/19 97.9 85 18 120/67 98 Room Air 13:13 (84) Intake and Output 01/28/19 01/28/19 01/29/19 1515:00 23:00 07:00 IntakeIntake Total 1600 ml 850 ml 100 ml BalanceBalance 1600 ml 850 ml 100 ml Results Result Diagram: 01/29/19 0544 01/29/19 0544 Results 24hrs Laboratory Tests Test 01/29/19 05:44 01/29/19 08:54 White Blood Count 8.2 # Red Blood Count 4.20 Hemoglobin 11.9 L Hematocrit 35.9 L Mean Corpuscular Volume 85.5 Mean Corpuscular Hemoglobin 28.3 L Mean Corpuscular Hemoglobin Concent 33.1 Red Cell Distribution Width 11.9 Platelet Count 273 Mean Platelet Volume 9.7 Immature Granulocytes % 0.500 H Neutrophils % 63.0 Lymphocytes % 23.8 Monocytes % 7.1 Eosinophils % 5.0 Basophils % 0.6 Nucleated Red Blood Cells % 0.0 Immature Granulocytes # 0.040 H Neutrophils # 5.2 Lymphocytes # 2.0 Monocytes # 0.6 Eosinophils # 0.4 Basophils # 0.1 Nucleated Red Blood Cells # 0.0 Sodium Level 140 Potassium Level 3.5 Chloride Level 107 Carbon Dioxide Level 20 L Anion Gap 13 Blood Urea Nitrogen 6 L Creatinine 0.54 Est Glomerular Filtrat Rate mL/min > 60 Glucose Level 73 Calcium Level 8.9 Vancomycin Level Trough 9.0 L Medications Medication Current Medications IV Flush (NS 3 ml) 3 ml PER PROTOCOL IV ; Start 01/26/19 at 15:00 Ondansetron HCl (Zofran Inj) 4 mg Q6H PRN IV NAUSEA/VOMITING; Start 01/26/19 at 15:00 Acetaminophen (Tylenol Tab) 650 mg Q6H PRN PO .PAIN 1-3 OR TEMP; Start 01/26/19 at 15:00 Acetaminophen/ Hydrocodone Bitart ([place] (5/325)) 1 tab Q6H PRN PO .MOD PAIN 4- 6 Last administered on 01/28/19at 18:50; Admin Dose 1 TAB; Start 01/26/19 at 15:00 Morphine Sulfate (morphine) 2 mg Q4H PRN IV .SEVERE PAIN 7-10 Last administered on 01/27/19at 21:48; Admin Dose 2 MG; Start 01/26/19 at 15:00 Docusate Sodium (Colace) 100 mg Q12H PRN PO .CONSTIPATION; Start 01/26/19 at 15:00 Magnesium Hydroxide (Milk Of Mag) 30 ml DAILY PRN PO .CONSTIPATION; Start 01/26/19 at 15:00 Heparin Sodium (Porcine) (Heparin (5000 Units/1ml)) 5,000 unit Q12 SC Last administered on 01/29/19at 09:05; Admin Dose 5,000 UNIT; Start 01/26/19 at 21:00 Lorazepam (Ativan) 0.5 mg Q6H PRN IV ANXIETY; Start 01/26/19 at 15:00 Albuterol/ Ipratropium (Duoneb) 3 ml Q4H RESP THERAPY PRN HHN SHORTNESS OF BREATH; Start 01/26/19 at 15:00 Hydralazine HCl (Apresoline) 10 mg Q6H PRN IV ELEVATED BLOOD PRESSURE; Start 01/26/19 at 15:00 Nitroglycerin (Nitroglycerin (Sl Tab) 0.4 Mg) 1 tab Q5M PRN SL ANGINA; Start 01/26/19 at 15:00 Meropenem/Sodium Chloride 50 ml @ 100 mls/hr Q8 IVPB Last administered on 01/29/19at 07:01; Admin Dose 100 MLS/HR; Start 01/27/19 at 22:00 Vancomycin HCl (Vanco Iv Per Pharmacy) VANCOMYCIN PER PHARMACY PER PROTOCOL XX ; Start 01/27/19 at 17:30 Sodium Chloride 1,000 ml @ 75 mls/hr [id number] IV Last administered on 01/29/19at 07:02; Admin Dose 75 MLS/HR; Start 01/28/19 at 14:00 Vancomycin HCl 1.25 gm/Sodium Chloride 250 ml @ 83.333 mls/ hr Q12H IVPB ; Start 01/29/19 at 22:00 JOHNNIE WERNER NP Jan 29, 2019 13:16
--- NOTE | 2019-01-29 13:40 | PN ---
Date/Time of Note Date/Time of Note DATE: 01/29/19 TIME: 13:38 Assessment/Plan VTE Prophylaxis Risk score (from Ns)>0 risk: 2 SCD applied (from Ns): No SCD contraindicated: other Pharmacological prophylaxis: heparin Lines/Catheters IV [facility]from [facility] Peripheral IV Assessment/Plan Hospital Course S: No fevers overnight, per nursing staff tolerating clear liquid diet. Seen by GI and surgery teams yesterday as well as infectious disease team. O: VS - see below PE: GENERAL: lying in bed, slightly obese, no acute distress. HEENT: Pupils are equal, round, react to light. Extraocular muscles are intact. NECK: Supple. No thyromegaly. LUNGS: Clear to auscultation bilaterally. CARDIOVASCULAR: S1, S2 heard. No rubs, no gallops. ABDOMEN: Less tenderness to palpation in left lower quadrant area. Mild rebound, no guarding. Normal bowel sounds MUSCULOSKELETAL: No lower extremity edema bilaterally. NEUROLOGIC: No focal deficits. ASSESSMENT AND PLAN: 48-year-old female with abdominal pain for about 1 week with prior history of diverticulitis, now with findings of again diverticulitis with possible perforation. 1. Abdominal pain-symptoms resolving now, again secondary to diverticulitis with possible perforation and abscess formation. -Continue diet clear liquid for now per surgery recommendations,, continue IV fluids, pain control medications, broad-spectrum antibiotics as recommended by ID team -Follow-up recommendations for surgery consult -per them no surgical indication at this time, they will also determine when patient is okay to start diet -Follow-up ID and GI team recommendations 2. Hypertension. Blood pressure is stable. - Continue to monitor for now, hydralazine p.r.n. systolic greater than 160. 3. Deep venous thrombosis prophylaxis, heparin subcutaneously. Result Diagram: 01/29/19 0544 01/29/19 0544 Results 24hrs Laboratory Tests Test 01/29/19 05:44 01/29/19 08:54 White Blood Count 8.2 # Red Blood Count 4.20 Hemoglobin 11.9 L Hematocrit 35.9 L Mean Corpuscular Volume 85.5 Mean Corpuscular Hemoglobin 28.3 L Mean Corpuscular Hemoglobin Concent 33.1 Red Cell Distribution Width 11.9 Platelet Count 273 Mean Platelet Volume 9.7 Immature Granulocytes % 0.500 H Neutrophils % 63.0 Lymphocytes % 23.8 Monocytes % 7.1 Eosinophils % 5.0 Basophils % 0.6 Nucleated Red Blood Cells % 0.0 Immature Granulocytes # 0.040 H Neutrophils # 5.2 Lymphocytes # 2.0 Monocytes # 0.6 Eosinophils # 0.4 Basophils # 0.1 Nucleated Red Blood Cells # 0.0 Sodium Level 140 Potassium Level 3.5 Chloride Level 107 Carbon Dioxide Level 20 L Anion Gap 13 Blood Urea Nitrogen 6 L Creatinine 0.54 Est Glomerular Filtrat Rate mL/min > 60 Glucose Level 73 Calcium Level 8.9 Vancomycin Level Trough 9.0 L Exam/Review of Systems Exam Vitals Vital Signs Date Temp Pulse Resp B/P (MAP) Pulse Ox O2 O2 Flow FiO2 Time Delivery Rate 01/29/19 97.9 85 18 120/67 98 Room Air 13:13 (84) Intake and Output 01/28/19 01/28/19 01/29/19 1515:00 23:00 07:00 IntakeIntake Total 1600 ml 850 ml 100 ml BalanceBalance 1600 ml 850 ml 100 ml Results Results 24hrs Laboratory Tests Test 01/29/19 05:44 01/29/19 08:54 White Blood Count 8.2 # Red Blood Count 4.20 Hemoglobin 11.9 L Hematocrit 35.9 L Mean Corpuscular Volume 85.5 Mean Corpuscular Hemoglobin 28.3 L Mean Corpuscular Hemoglobin Concent 33.1 Red Cell Distribution Width 11.9 Platelet Count 273 Mean Platelet Volume 9.7 Immature Granulocytes % 0.500 H Neutrophils % 63.0 Lymphocytes % 23.8 Monocytes % 7.1 Eosinophils % 5.0 Basophils % 0.6 Nucleated Red Blood Cells % 0.0 Immature Granulocytes # 0.040 H Neutrophils # 5.2 Lymphocytes # 2.0 Monocytes # 0.6 Eosinophils # 0.4 Basophils # 0.1 Nucleated Red Blood Cells # 0.0 Sodium Level 140 Potassium Level 3.5 Chloride Level 107 Carbon Dioxide Level 20 L Anion Gap 13 Blood Urea Nitrogen 6 L Creatinine 0.54 Est Glomerular Filtrat Rate mL/min > 60 Glucose Level 73 Calcium Level 8.9 Vancomycin Level Trough 9.0 L Medications Medication Current Medications IV Flush (NS 3 ml) 3 ml PER PROTOCOL IV ; Start 01/26/19 at 15:00 Ondansetron HCl (Zofran Inj) 4 mg Q6H PRN IV NAUSEA/VOMITING; Start 01/26/19 at 15:00 Acetaminophen (Tylenol Tab) 650 mg Q6H PRN PO .PAIN 1-3 OR TEMP; Start 01/26/19 at 15:00 Acetaminophen/ Hydrocodone Bitart ([place] (5/325)) 1 tab Q6H PRN PO .MOD PAIN 4- 6 Last administered on 01/28/19at 18:50; Admin Dose 1 TAB; Start 01/26/19 at 15:00 Morphine Sulfate (morphine) 2 mg Q4H PRN IV .SEVERE PAIN 7-10 Last administered on 01/27/19at 21:48; Admin Dose 2 MG; Start 01/26/19 at 15:00 Docusate Sodium (Colace) 100 mg Q12H PRN PO .CONSTIPATION; Start 01/26/19 at 15:00 Magnesium Hydroxide (Milk Of Mag) 30 ml DAILY PRN PO .CONSTIPATION; Start 01/26/19 at 15:00 Heparin Sodium (Porcine) (Heparin (5000 Units/1ml)) 5,000 unit Q12 SC Last administered on 01/29/19at 09:05; Admin Dose 5,000 UNIT; Start 01/26/19 at 21:00 Lorazepam (Ativan) 0.5 mg Q6H PRN IV ANXIETY; Start 01/26/19 at 15:00 Albuterol/ Ipratropium (Duoneb) 3 ml Q4H RESP THERAPY PRN HHN SHORTNESS OF BREATH; Start 01/26/19 at 15:00 Hydralazine HCl (Apresoline) 10 mg Q6H PRN IV ELEVATED BLOOD PRESSURE; Start 01/26/19 at 15:00 Nitroglycerin (Nitroglycerin (Sl Tab) 0.4 Mg) 1 tab Q5M PRN SL ANGINA; Start 01/26/19 at 15:00 Meropenem/Sodium Chloride 50 ml @ 100 mls/hr Q8 IVPB Last administered on 01/29/19at 07:01; Admin Dose 100 MLS/HR; Start 01/27/19 at 22:00 Vancomycin HCl (Vanco Iv Per Pharmacy) VANCOMYCIN PER PHARMACY PER PROTOCOL XX ; Start 01/27/19 at 17:30 Sodium Chloride 1,000 ml @ 75 mls/hr [id number] IV Last administered on 01/29/19at 07:02; Admin Dose 75 MLS/HR; Start 01/28/19 at 14:00 Vancomycin HCl 1.25 gm/Sodium Chloride 250 ml @ 83.333 mls/ hr Q12H IVPB ; Start 01/29/19 at 22:00 CASSY CASTELLON Jan 29, 2019 13:40
[2019-01-29 19:55] VITALS: BP 114/65; PULSE 87; RESP 18
[2019-01-29] MEDS: VANCOMYCIN HCL 1.25 GM in SOD CHLORIDE 0.9% 250 ML IVPB SCH (22:10)
[2019-01-30 01:57] VITALS: BP 108/57; PULSE 78; RESP 16
[2019-01-30] MEDS: MEROPENEM 1 GM/50ML(PMX) 50 ML IVPB SCH ×3 (05:56→21:34)
[2019-01-30] MEDS: SOD CHLORIDE 0.45% 1,000 ML IV SCH ×2 (06:04→19:20)
[2019-01-30 08:05] VITALS: BP 117/57; PULSE 70; RESP 16
[2019-01-30] MEDS: HEPARIN 5,000 UNIT/1 ML VIAL SC SCH (09:00)
[2019-01-30] MEDS: VANCOMYCIN HCL 1.25 GM in SOD CHLORIDE 0.9% 250 ML IVPB SCH ×2 (12:13→22:22)
[2019-01-30] MEDS ORDERED: POTASSIUM CHLORIDE (SR) 20 MEQ TAB PO STA (14:10)
--- NOTE | 2019-01-30 14:12 | PN ---
Date/Time of Note Date/Time of Note DATE: 01/30/19 TIME: 14:11 Assessment/Plan VTE Prophylaxis Risk score (from Nsg)>0 risk: 2 SCD applied (from Ns): No SCD contraindicated: low risk/ambulating Pharmacological prophylaxis: other Lines/Catheters IV Catheter Type (from Nrsg): Peripheral IV Assessment/Plan Hospital Course S: No fevers overnight, about to be started on soft diet today. Ambulating. O: VS - see below PE: GENERAL: lying in bed, slightly obese, no acute distress. HEENT: Pupils are equal, round, react to light. Extraocular muscles are intact. NECK: Supple. No thyromegaly. LUNGS: Clear to auscultation bilaterally. CARDIOVASCULAR: S1, S2 heard. No rubs, no gallops. ABDOMEN: Less tenderness to palpation in left lower quadrant area. Mild rebound, no guarding. Normal bowel sounds MUSCULOSKELETAL: No lower extremity edema bilaterally. NEUROLOGIC: No focal deficits. ASSESSMENT AND PLAN: 48-year-old female with abdominal pain for about 1 week with prior history of diverticulitis, now with findings of again diverticulitis with possible perforation. 1. Abdominal pain-symptoms resolving now, again secondary to diverticulitis with possible perforation and abscess formation. -Continue diet orders/advancement (soft today) per surgery recommendations, IV fluids, pain control medications, broad-spectrum antibiotics as recommended by ID team -Follow-up recommendations for surgery consult -per them no surgical indication at this time -Follow-up ID and GI team recommendations 2. Hypertension. Blood pressure is stable. - Continue to monitor for now, hydralazine p.r.n. systolic greater than 160. 3. Deep venous thrombosis prophylaxis, heparin subcutaneously. Result Diagram: 01/30/1943 01/30/19 0543 Results 24hrs Laboratory Tests Test 01/30/19 05:43 White Blood Count 7.2 Red Blood Count 4.06 L Hemoglobin 11.6 L Hematocrit 34.8 L Mean Corpuscular Volume 85.7 Mean Corpuscular Hemoglobin 28.6 L Mean Corpuscular Hemoglobin Concent 33.3 Red Cell Distribution Width 12.0 Platelet Count 283 Mean Platelet Volume 9.8 Immature Granulocytes % 0.600 H Neutrophils % 57.9 Lymphocytes % 28.8 Monocytes % 7.2 Eosinophils % 4.9 Basophils % 0.6 Nucleated Red Blood Cells % 0.0 Immature Granulocytes # 0.040 H Neutrophils # 4.2 Lymphocytes # 2.1 Monocytes # 0.5 Eosinophils # 0.4 Basophils # 0.0 Nucleated Red Blood Cells # 0.0 Sodium Level 142 Potassium Level 3.1 L Chloride Level 107 Carbon Dioxide Level 26 Anion Gap 9 Blood Urea Nitrogen 4 L Creatinine 0.50 Est Glomerular Filtrat Rate mL/min > 60 Glucose Level 85 Calcium Level 8.8 Exam/Review of Systems Exam Vitals Vital Signs Date Temp Pulse Resp B/P (MAP) Pulse Ox O2 O2 Flow FiO2 Time Delivery Rate 01/30/19 98.4 70 16 117/57 98 08:05 (77) 01/29/19 Room Air 13:13 Intake and Output 01/29/19 01/29/19 01/30/19 1515:00 23:00 07:00 IntakeIntake Total 2260 ml 1750 ml 800 ml OutputOutput Total 1 ml BalanceBalance 2259 ml 1750 ml 800 ml Results Results 24hrs Laboratory Tests Test 01/30/19 05:43 White Blood Count 7.2 Red Blood Count 4.06 L Hemoglobin 11.6 L Hematocrit 34.8 L Mean Corpuscular Volume 85.7 Mean Corpuscular Hemoglobin 28.6 L Mean Corpuscular Hemoglobin Concent 33.3 Red Cell Distribution Width 12.0 Platelet Count 283 Mean Platelet Volume 9.8 Immature Granulocytes % 0.600 H Neutrophils % 57.9 Lymphocytes % 28.8 Monocytes % 7.2 Eosinophils % 4.9 Basophils % 0.6 Nucleated Red Blood Cells % 0.0 Immature Granulocytes # 0.040 H Neutrophils # 4.2 Lymphocytes # 2.1 Monocytes # 0.5 Eosinophils # 0.4 Basophils # 0.0 Nucleated Red Blood Cells # 0.0 Sodium Level 142 Potassium Level 3.1 L Chloride Level 107 Carbon Dioxide Level 26 Anion Gap 9 Blood Urea Nitrogen 4 L Creatinine 0.50 Est Glomerular Filtrat Rate mL/min > 60 Glucose Level 85 Calcium Level 8.8 Medications Medication Current Medications IV Flush (NS 3 ml) 3 ml PER PROTOCOL IV ; Start 01/26/19 at 15:00 Ondansetron HCl (Zofran Inj) 4 mg Q6H PRN IV NAUSEA/VOMITING; Start 01/26/19 at 15:00 Acetaminophen (Tylenol Tab) 650 mg Q6H PRN PO .PAIN 1-3 OR TEMP; Start 01/26/19 at 15:00 Acetaminophen/ Hydrocodone Bitart ([place] (5/325)) 1 tab Q6H PRN PO .MOD PAIN 4- 6 Last administered on 01/28/19at 18:50; Admin Dose 1 TAB; Start 01/26/19 at 15:00 Morphine Sulfate (morphine) 2 mg Q4H PRN IV .SEVERE PAIN 7-10 Last administered on 01/27/19at 21:48; Admin Dose 2 MG; Start 01/26/19 at 15:00 Docusate Sodium (Colace) 100 mg Q12H PRN PO .CONSTIPATION; Start 01/26/19 at 15:00 Magnesium Hydroxide (Milk Of Mag) 30 ml DAILY PRN PO .CONSTIPATION; Start 01/26/19 at 15:00 Heparin Sodium (Porcine) (Heparin (5000 Units/1ml)) 5,000 unit Q12 SC Last administered on 01/29/19at 20:48; Admin Dose 5,000 UNIT; Start 01/26/19 at 21:00 Lorazepam (Ativan) 0.5 mg Q6H PRN IV ANXIETY; Start 01/26/19 at 15:00 Albuterol/ Ipratropium (Duoneb) 3 ml Q4H RESP THERAPY PRN HHN SHORTNESS OF BREATH; Start 01/26/19 at 15:00 Hydralazine HCl (Apresoline) 10 mg Q6H PRN IV ELEVATED BLOOD PRESSURE; Start 01/26/19 at 15:00 Nitroglycerin (Nitroglycerin (Sl Tab) 0.4 Mg) 1 tab Q5M PRN SL ANGINA; Start 01/26/19 at 15:00 Meropenem/Sodium Chloride 50 ml @ 100 mls/hr Q8 IVPB Last administered on 01/30/19at 05:56; Admin Dose 100 MLS/HR; Start 01/27/19 at 22:00 Vancomycin HCl (Vanco Iv Per Pharmacy) VANCOMYCIN PER PHARMACY PER PROTOCOL XX ; Start 01/27/19 at 17:30 Sodium Chloride 1,000 ml @ 75 mls/hr [id number] IV Last administered on 01/30/19at 06:04; Admin Dose 75 MLS/HR; Start 01/28/19 at 14:00 Vancomycin HCl 1.25 gm/Sodium Chloride 250 ml @ 83.333 mls/ hr Q12H IVPB Last administered on 01/30/19at 12:13; Admin Dose 83.333 MLS/HR; Start 01/29/19 at 22:00 Miscellaneous Information (*Rx Drug Level Order Reminder*) VANCO TROUGH @ 0,900 ON... 0900 ONCE XX ; Start 01/31/19 at 09:00; Stop 01/31/19 at 09:01 CASSY CASTELLON Jan 30, 2019 14:12
--- NOTE | 2019-01-30 16:26 | CONS ---
Assessment/Plan Assessment/Plan Hospital Course (Demo Recall) ID PROGRESS NOTE CURRENT ABX: DAY # 4.5 => Vanco IV, Merrem 01/30/19 0543 01/30/19 0543 24H INTERVAL SUMMARY * 48 yo F admit with recurrent diverticulitis possible perforation and abscess formation. * She has improved, pain only during defecation, no fevers, VSS, WBC normal DIAGNOSTIC IMAGING * CT abdomen pelvis revealed mild and marked inflammation of proximal to mid sigmoid colon consistent with acute diverticulitis with perforation and probable phlegmon/early developing abscess measuring 4.3 x 3.5 cm and 2.4 x 1.5 cm that may not be drainable at this time. No gross evidence of bowel obstruction. Please see full report in the chart MICRO/OTHER * Microbiology: Urine culture negative PHYSICAL EXAMINATION: GENERAL: VSS, NAD, morbid obese HEENT: AT, NC, anicteric, NECK: Supple, CHEST: Equal chest rise bilaterally, without dyspnea on observation HEART: Pulse RRR ABDOMEN: Soft / NT EXTREMITIES: Warm, dry SKIN: No rash, no diaphoresis ID ASSESSMENT 48 yo F admit with: 1. Acute perforated diverticulitis 2. Morbid obesity 3. s/p SIRS w/low grade temps and mild leukocytosis = RESOLVED ABX ALLERGIES: None to ABX INVASIVES: PIV CURRENT ABX: DAY #4.5 => Vanco IV, Merrem ID RECOMMENDATIONS/PLAN: 1. Continue current ABX 2. Repeat CT abdomen after 7 days abx therapy 3. May DC home on PO Augmentin 875mg Q12H to complete 10 days ABX to OP f/u and repeat CT when cleared by primary . . Consultation Date/Type/Reason Admit Date/Time Jan 26, 2019 at 13:51 Initial Consult Date 01/26/19 Requesting Provider: AZ GOMEZ Date/Time of Note DATE: 01/30/19 TIME: 16:23 Exam/Review of Systems Exam Vitals Vital Signs Date Temp Pulse Resp B/P (MAP) Pulse Ox O2 O2 Flow FiO2 Time Delivery Rate 01/30/19 98.4 70 16 117/57 98 08:05 (77) 01/29/19 Room Air 13:13 Intake and Output 01/29/19 01/29/19 01/30/19 1515:00 23:00 07:00 IntakeIntake Total 2260 ml 1750 ml 800 ml OutputOutput Total 1 ml BalanceBalance 2259 ml 1750 ml 800 ml Results Result Diagram: 01/30/19 0543 01/30/19 0543 Results 24hrs Laboratory Tests Test 01/30/19 05:43 White Blood Count 7.2 Red Blood Count 4.06 L Hemoglobin 11.6 L Hematocrit 34.8 L Mean Corpuscular Volume 85.7 Mean Corpuscular Hemoglobin 28.6 L Mean Corpuscular Hemoglobin Concent 33.3 Red Cell Distribution Width 12.0 Platelet Count 283 Mean Platelet Volume 9.8 Immature Granulocytes % 0.600 H Neutrophils % 57.9 Lymphocytes % 28.8 Monocytes % 7.2 Eosinophils % 4.9 Basophils % 0.6 Nucleated Red Blood Cells % 0.0 Immature Granulocytes # 0.040 H Neutrophils # 4.2 Lymphocytes # 2.1 Monocytes # 0.5 Eosinophils # 0.4 Basophils # 0.0 Nucleated Red Blood Cells # 0.0 Sodium Level 142 Potassium Level 3.1 L Chloride Level 107 Carbon Dioxide Level 26 Anion Gap 9 Blood Urea Nitrogen 4 L Creatinine 0.50 Est Glomerular Filtrat Rate mL/min > 60 Glucose Level 85 Calcium Level 8.8 Medications Medication Current Medications IV Flush (NS 3 ml) 3 ml PER PROTOCOL IV ; Start 01/26/19 at 15:00 Ondansetron HCl (Zofran Inj) 4 mg Q6H PRN IV NAUSEA/VOMITING; Start 01/26/19 at 15:00 Acetaminophen (Tylenol Tab) 650 mg Q6H PRN PO .PAIN 1-3 OR TEMP; Start 01/26/19 at 15:00 Acetaminophen/ Hydrocodone Bitart ([place] (5/325)) 1 tab Q6H PRN PO .MOD PAIN 4- 6 Last administered on 01/28/19at 18:50; Admin Dose 1 TAB; Start 01/26/19 at 15:00 Morphine Sulfate (morphine) 2 mg Q4H PRN IV .SEVERE PAIN 7-10 Last administered on 01/27/19at 21:48; Admin Dose 2 MG; Start 01/26/19 at 15:00 Docusate Sodium (Colace) 100 mg Q12H PRN PO .CONSTIPATION; Start 01/26/19 at 15 :00 Magnesium Hydroxide (Milk Of Mag) 30 ml DAILY PRN PO .CONSTIPATION; Start 01/26/19 at 15:00 Lorazepam (Ativan) 0.5 mg Q6H PRN IV ANXIETY; Start 01/26/19 at 15:00 Albuterol/ Ipratropium (Duoneb) 3 ml Q4H RESP THERAPY PRN HHN SHORTNESS OF BREATH; Start 01/26/19 at 15:00 Hydralazine HCl (Apresoline) 10 mg Q6H PRN IV ELEVATED BLOOD PRESSURE; Start 01/26/19 at 15:00 Nitroglycerin (Nitroglycerin (Sl Tab) 0.4 Mg) 1 tab Q5M PRN SL ANGINA; Start 01/26/19 at 15:00 Meropenem/Sodium Chloride 50 ml @ 100 mls/hr Q8 IVPB Last administered on 01/30/19at 15:15; Admin Dose 100 MLS/HR; Start 01/27/19 at 22:00 Vancomycin HCl (Vanco Iv Per Pharmacy) VANCOMYCIN PER PHARMACY PER PROTOCOL XX ; Start 01/27/19 at 17:30 Sodium Chloride 1,000 ml @ 75 mls/hr [id number] IV Last administered on 01/30/19at 06:04; Admin Dose 75 MLS/HR; Start 01/28/19 at 14:00 Vancomycin HCl 1.25 gm/Sodium Chloride 250 ml @ 83.333 mls/ hr Q12H IVPB Last administered on 01/30/19at 12:13; Admin Dose 83.333 MLS/HR; Start 01/29/19 at 22:00 Miscellaneous Information (*Rx Drug Level Order Reminder*) VANCO TROUGH @ 0,900 ON... 0900 ONCE XX ; Start 01/31/19 at 09:00; Stop 01/31/19 at 09:01 JOHNNIE WERNER NP Jan 30, 2019 16:26
[2019-01-30 16:38] VITALS: BP 145/60; PULSE 79; RESP 18
[2019-01-30 19:52] VITALS: BP 115/70; PULSE 82; RESP 18
--- NOTE | 2019-01-30 23:56 | PN ---
Date/Time of Note Date/Time of Note DATE: 01/29/19 TIME: 23:56 Assessment/Plan Lines/Catheters IV Catheter Type (from Nrs): Peripheral IV Assessment/Plan Chief Complaint/Hosp Course 1. Proximal to mid sigmoid diverticulitis with adjacent free air and loculated fluid consistent with perforation and probable phlegmon/early developing abscess, 4.3 x 3.5 and 2.4 x 1.5 cm. -No emergent surgical intervention necessary at this time we will continue to closely monitor. -Antibiotics per ID -GI f/u -Advance diet as tolerated 2. Abdominal pain: Improved -Pain management 3. Mild leukocytosis: Likely 2/2 #1; resolved -As above 4. Obesity: -diet and exercise optimization -encourage weight loss Thank you Late entry 01/29 Subjective 24 Hr Interval Summary GI input noted. Feels much better. No fevers, chills, sob, congested cough, cp, palpitations, gama, dizziness, nausea, vomiting, diarrhea, dysuria. Labs noted. Exam/Review of Systems Vital Signs Vitals Vital Signs Date Temp Pulse Resp B/P (MAP) Pulse Ox O2 O2 Flow FiO2 Time Delivery Rate 01/30/19 97.7 82 18 115/70 96 19:52 (85) 01/29/19 Room Air 13:13 Intake and Output 01/30/19 01/30/19 01/31/19 1515:00 23:00 07:00 IntakeIntake Total 1720 ml 1230 ml BalanceBalance 1720 ml 1230 ml Exam Free Text/Dictation Constitutional: alert, oriented Psych: nl mood/affect; No anxiety Head: normocephalic, atraumatic Eyes: nl conjunctiva, EOMI, nl lids, nl sclera ENMT: nl external ears & nose, nl lips & teeth, mucosa pink and moist Neck: supple, non-tender Respiratory: normal air movement; No congested cough, No labored breathing Cardiovascular: regular rate and rhythm, nl pulses; No edema Gastrointestinal: soft, non-distended, min tender (Left lower quadrant-much improved) Genitourinary - Female: nl external genitalia Musculoskeletal: nl extremities to inspection, nl gait and stance; No joint tenderness Extremities: normal pulses; No edema Neurological: nl mental status, nl speech, nl strength Skin: No rash or lesions Lymph: nl lymph nodes Results Result Diagram: 01/30/19 0543 01/30/[address] MD Jan 30, 2019 23:56
--- NOTE | 2019-01-30 23:56 | PN ---
Date/Time of Note Date/Time of Note DATE: 01/30/19 TIME: 23:56 Assessment/Plan Lines/Catheters IV Catheter Type (from Nrs): Peripheral IV Assessment/Plan Chief Complaint/Hosp Course 1. Proximal to mid sigmoid diverticulitis with adjacent free air and loculated fluid consistent with perforation and probable phlegmon/early developing abscess, 4.3 x 3.5 and 2.4 x 1.5 cm. -No emergent surgical intervention necessary at this time we will continue to closely monitor. -Antibiotics per ID -GI f/u -Diet 2. Abdominal pain: Improved -Pain management 3. Mild leukocytosis: Likely 2/2 #1; resolved -As above 4. Obesity: -diet and exercise optimization -encourage weight loss Thank you Subjective 24 Hr Interval Summary Feels much better. No fevers, chills, sob, congested cough, cp, palpitations, gama, dizziness, nausea, vomiting, diarrhea, dysuria. Labs noted. Exam/Review of Systems Vital Signs Vitals Vital Signs Date Temp Pulse Resp B/P (MAP) Pulse Ox O2 O2 Flow FiO2 Time Delivery Rate 01/30/19 97.7 82 18 115/70 96 19:52 (85) 01/29/19 Room Air 13:13 Intake and Output 01/30/19 01/30/19 01/31/19 1515:00 23:00 07:00 IntakeIntake Total 1720 ml 1230 ml BalanceBalance 1720 ml 1230 ml Exam Free Text/Dictation Constitutional: alert, oriented Psych: nl mood/affect; No anxiety Head: normocephalic, atraumatic Eyes: nl conjunctiva, EOMI, nl lids, nl sclera ENMT: nl external ears & nose, nl lips & teeth, mucosa pink and moist Neck: supple, non-tender Respiratory: normal air movement; No congested cough, No labored breathing Cardiovascular: regular rate and rhythm, nl pulses; No edema Gastrointestinal: soft, non-distended, min tender (Left lower quadrant-much improved) Genitourinary - Female: nl external genitalia Musculoskeletal: nl extremities to inspection, nl gait and stance; No joint tenderness Extremities: normal pulses; No edema Neurological: nl mental status, nl speech, nl strength Skin: No rash or lesions Lymph: nl lymph nodes Results Result Diagram: 01/30/19 0543 01/30/[address] MD Jan 30, 2019 23:56
[2019-01-31 01:25] VITALS: BP 106/62; PULSE 85; RESP 16
[2019-01-31] MEDS: SOD CHLORIDE 0.45% 1,000 ML IV SCH (06:04)
[2019-01-31] MEDS: MEROPENEM 1 GM/50ML(PMX) 50 ML IVPB SCH ×3 (06:05→21:20)
--- NOTE | 2019-01-31 07:01 | PN ---
DATE: 01/30/2019 SUBJECTIVE: The patient is being treated for a perforated and sealed off diverticulitis. No nausea, no vomiting, no diarrhea, no GI bleeding. PHYSICAL EXAMINATION: GENERAL: The patient is a 48-year-old female who at this time well-built. VITAL SIGNS: She is afebrile. Pulse is 76, blood pressure 130/68. CARDIOVASCULAR: Normal heart sounds. RESPIRATORY: Normal breath sounds. ABDOMEN: Nontender. CLINICAL IMPRESSION: Resolving perforated and sealed off diverticulitis. Continue antibiotic therap y. I recommend colonoscopy as an outpatient. Dictated By: NATHALIE GASTELUM/NTS Conf#: [id number] DID#: [id number] CC: CASSY CASTELLON;*EndNOAH*
[2019-01-31 07:53] VITALS: BP 112/68; PULSE 81; RESP 16
[2019-01-31] MEDS: VANCOMYCIN HCL 1.25 GM in SOD CHLORIDE 0.9% 250 ML IVPB SCH ×2 (09:31→21:20)
--- NOTE | 2019-01-31 13:56 | CONS ---
Assessment/Plan Assessment/Plan Hospital Course (Demo Recall) Alert feels good, looks comfortable, no fevers overnight Microbiology: Urine culture negative CT abdomen pelvis on admission revealed mild and marked inflammation of proximal to mid sigmoid colon consistent with acute diverticulitis with perforation and probable phlegmon/early developing abscess measuring 4.3 x 3.5 cm and 2.4 x 1.5 cm that may not be drainable at this time. No gross evidence of bowel obstruction. Please see full report in the chart Antimicrobials: Vanco Merrem Physical examination: This is a morbidly obese well-developed middle-aged woman who is awake in no distress. Head atraumatic normocephalic. Neck is supple chest rise symmetrical breath sounds diminished bases. Heart: S1-S2. Abdomen obese soft bowel sounds hypoactive. Extremities without cyan osis Assessment: 1. Acute perforated diverticulitis 2. Morbid obesity Plan: Clinically improving, will repeat CT of the abdomen today, continue abx, surgical recommendations noted Consultation Date/Type/Reason Admit Date/Time Jan 26, 2019 at 13:51 Initial Consult Date 01/26/19 Type of Consult id Requesting Provider: AZ GOMEZ Date/Time of Note DATE: 01/31/19 TIME: 13:55 Exam/Review of Systems Exam Vitals Vital Signs Date Temp Pulse Resp B/P (MAP) Pulse Ox O2 O2 Flow FiO2 Time Delivery Rate 01/31/19 98.0 81 16 112/68 98 07:53 (83) 01/29/19 Room Air 13:13 Intake and Output 01/30/19 01/30/19 01/31/19 1515:00 23:00 07:00 IntakeIntake Total 1720 ml 1280 ml 800 ml BalanceBalance 1720 ml 1280 ml 800 ml Results Result Diagram: 01/31/19 0458 01/31/19 0458 Results 24hrs Laboratory Tests Test 01/31/19 04:58 01/31/19 08:43 White Blood Count 7.0 Red Blood Count 3.99 L Hemoglobin 11.3 L Hematocrit 34.3 L Mean Corpuscular Volume 86.0 Mean Corpuscular Hemoglobin 28.3 L Mean Corpuscular Hemoglobin Concent 32.9 Red Cell Distribution Width 12.2 Platelet Count 284 Mean Platelet Volume 9.8 Immature Granulocytes % 0.300 Neutrophils % 54.7 Lymphocytes % 29.4 Monocytes % 7.9 Eosinophils % 7.1 H Basophils % 0.6 Nucleated Red Blood Cells % 0.0 Immature Granulocytes # 0.020 Neutrophils # 3.8 Lymphocytes # 2.0 Monocytes # 0.6 Eosinophils # 0.5 Basophils # 0.0 Nucleated Red Blood Cells # 0.0 Sodium Level 142 Potassium Level 3.3 L Chloride Level 111 H Carbon Dioxide Level 24 Anion Gap 7 Blood Urea Nitrogen 5 L Creatinine 0.44 Est Glomerular Filtrat Rate mL/min > 60 Glucose Level 91 Calcium Level 8.9 Vancomycin Level Trough 12.0 Medications Medication Current Medications IV Flush (NS 3 ml) 3 ml PER PROTOCOL IV ; Start 01/26/19 at 15:00 Ondansetron HCl (Zofran Inj) 4 mg Q6H PRN IV NAUSEA/VOMITING; Start 01/26/19 at 15:00 Acetaminophen (Tylenol Tab) 650 mg Q6H PRN PO .PAIN 1-3 OR TEMP; Start 01/26/19 at 15:00 Acetaminophen/ Hydrocodone Bitart ([place] (5/325)) 1 tab Q6H PRN PO .MOD PAIN 4- 6 Last administered on 01/28/19at 18:50; Admin Dose 1 TAB; Start 01/26/19 at 15:00 Morphine Sulfate (morphine) 2 mg Q4H PRN IV .SEVERE PAIN 7-10 Last administered on 01/27/19at 21:48; Admin Dose 2 MG; Start 01/26/19 at 15:00 Docusate Sodium (Colace) 100 mg Q12H PRN PO .CONSTIPATION; Start 01/26/19 at 15:00 Magnesium Hydroxide (Milk Of Mag) 30 ml DAILY PRN PO .CONSTIPATION; Start 01/01 05/20 at 15:00 Lorazepam (Ativan) 0.5 mg Q6H PRN IV ANXIETY; Start 01/26/19 at 15:00 Albuterol/ Ipratropium (Duoneb) 3 ml Q4H RESP THERAPY PRN HHN SHORTNESS OF BREATH; Start 01/26/19 at 15:00 Hydralazine HCl (Apresoline) 10 mg Q6H PRN IV ELEVATED BLOOD PRESSURE; Start 01/26/19 at 15:00 Nitroglycerin (Nitroglycerin (Sl Tab) 0.4 Mg) 1 tab Q5M PRN SL ANGINA; Start 01/26/19 at 15:00 Meropenem/Sodium Chloride 50 ml @ 100 mls/hr Q8 IVPB Last administered on 01/31/19at 06:05; Admin Dose 100 MLS/HR; Start 01/27/19 at 22:00 Vancomycin HCl (Vanco Iv Per Pharmacy) VANCOMYCIN PER PHARMACY PER PROTOCOL XX ; Start 01/27/19 at 17:30 Sodium Chloride 1,000 ml @ 75 mls/hr [id number] IV Last administered on 01/31/19at 06:04; Admin Dose 75 MLS/HR; Start 01/28/19 at 14:00 Vancomycin HCl 1.25 gm/Sodium Chloride 250 ml @ 83.333 mls/ hr Q12H IVPB Last administered on 01/31/19at 09:31; Admin Dose 83.333 MLS/HR; Start 01/29/19 at 22:00 KOKO CALDERON NP Jan 31, 2019 13:56
[2019-01-31 14:26] VITALS: BP 110/66; PULSE 86; RESP 16
[2019-01-31] MEDS ORDERED: IOHEXOL 300MG/ML 150 ML BTL ONE (17:39)
[2019-01-31] MEDS ORDERED: SOD CHLORIDE 0.9% 100 ML ONE (17:39)
--- NOTE | 2019-01-31 17:53 | PN ---
Date/Time of Note Date/Time of Note DATE: 01/31/19 TIME: 17:52 Assessment/Plan VTE Prophylaxis Risk score (from Ns)>0 risk: 2 SCD applied (from Ns): No SCD contraindicated: other (not contraindicated) Pharmacological prophylaxis: NA/contraindicated Pharm contraindication: low risk/ambulating Lines/Catheters IV [facility] Peripheral IV Assessment/Plan Assessment/Plan ASSESSMENT AND PLAN: 48-year-old female with abdominal pain for about 1 week with prior history of diverticulitis, now with findings of again diverticulitis with possible perforation. 1. Abdominal pain-symptoms resolving now, again secondary to diverticulitis with possible perforation and abscess formation. -Continue diet orders/advancement (soft today) per surgery recommendations, IV fluids, pain control medications, broad-spectrum antibiotics as recommended by ID team -Follow-up recommendations for surgery consult -per them no surgical indication at this time -Follow-up ID and GI team recommendations 2. Hypertension. Blood pressure is stable. - Continue to monitor for now, hydralazine p.r.n. systolic greater than 160. 3. Deep venous thrombosis prophylaxis, heparin subcutaneously. Dispo: Likely discharge in 24 hours. Result Diagram: 01/31/19 0458 01/31/19 0458 Subjective 24 Hr Interval Summary Free Text/Dictation Patient doing well. Sitting up in chair. Tolerating regular diet. Exam/Review of Systems Exam Vitals Vital Signs Date Temp Pulse Resp B/P (MAP) Pulse Ox O2 O2 Flow FiO2 Time Delivery Rate 01/31/19 97.8 86 16 110/66 96 14:26 (81) 01/29/19 Room Air 13:13 Intake and Output 01/30/19 01/30/19 01/31/19 1515:00 23:00 07:00 IntakeIntake Total 1720 ml 1280 ml 800 ml BalanceBalance 1720 ml 1280 ml 800 ml Exam GENERAL: lying in bed, slightly obese, no acute distress. HEENT: Pupils are equal, round, react to light. Extraocular muscles are intact. NECK: Supple. No thyromegaly. LUNGS: Clear to auscultation bilaterally. CARDIOVASCULAR: S1, S2 heard. No rubs, no gallops. ABDOMEN: Less tenderness to palpation in left lower quadrant area. Mild rebound, no guarding. Normal bowel sounds MUSCULOSKELETAL: No lower extremity edema bilaterally. NEUROLOGIC: No focal deficits. Results Results 24hrs Laboratory Tests Test 01/31/19 04:58 01/31/19 08:43 White Blood Count 7.0 Red Blood Count 3.99 L Hemoglobin 11.3 L Hematocrit 34.3 L Mean Corpuscular Volume 86.0 Mean Corpuscular Hemoglobin 28.3 L Mean Corpuscular Hemoglobin Concent 32.9 Red Cell Distribution Width 12.2 Platelet Count 284 Mean Platelet Volume 9.8 Immature Granulocytes % 0.300 Neutrophils % 54.7 Lymphocytes % 29.4 Monocytes % 7.9 Eosinophils % 7.1 H Basophils % 0.6 Nucleated Red Blood Cells % 0.0 Immature Granulocytes # 0.020 Neutrophils # 3.8 Lymphocytes # 2.0 Monocytes # 0.6 Eosinophils # 0.5 Basophils # 0.0 Nucleated Red Blood Cells # 0.0 Sodium Level 142 Potassium Level 3.3 L Chloride Level 111 H Carbon Dioxide Level 24 Anion Gap 7 Blood Urea Nitrogen 5 L Creatinine 0.44 Est Glomerular Filtrat Rate mL/min > 60 Glucose Level 91 Calcium Level 8.9 Vancomycin Level Trough 12.0 Medications Medication Current Medications IV Flush (NS 3 ml) 3 ml PER PROTOCOL IV ; Start 01/26/19 at 15:00 Ondansetron HCl (Zofran Inj) 4 mg Q6H PRN IV NAUSEA/VOMITING; Start 01/26/19 at 15:00 Acetaminophen (Tylenol Tab) 650 mg Q6H PRN PO .PAIN 1-3 OR TEMP; Start 01/26/19 at 15:00 Acetaminophen/ Hydrocodone Bitart ([place] (5/325)) 1 tab Q6H PRN PO .MOD PAIN 4- 6 Last administered on 01/28/19at 18:50; Admin Dose 1 TAB; Start 01/26/19 at 15:00 Morphine Sulfate (morphine) 2 mg Q4H PRN IV .SEVERE PAIN 7-10 Last administered on 01/27/19at 21:48; Admin Dose 2 MG; Start 01/26/19 at 15:00 Docusate Sodium (Colace) 100 mg Q12H PRN PO .CONSTIPATION; Start 01/26/19 at 15:00 Magnesium Hydroxide (Milk Of Mag) 30 ml DAILY PRN PO .CONSTIPATION; Start 01/26/19 at 15:00 Lorazepam (Ativan) 0.5 mg Q6H PRN IV ANXIETY; Start 01/26/19 at 15:00 Albuterol/ Ipratropium (Duoneb) 3 ml Q4H RESP THERAPY PRN HHN SHORTNESS OF BREATH; Start 01/26/19 at 15:00 Hydralazine HCl (Apresoline) 10 mg Q6H PRN IV ELEVATED BLOOD PRESSURE; Start 01/26/19 at 15:00 Nitroglycerin (Nitroglycerin (Sl Tab) 0.4 Mg) 1 tab Q5M PRN SL ANGINA; Start 01/26/19 at 15:00 Meropenem/Sodium Chloride 50 ml @ 100 mls/hr Q8 IVPB Last administered on 01/31/19at 15:29; Admin Dose 100 MLS/HR; Start 01/27/19 at 22:00 Vancomycin HCl (Vanco Iv Per Pharmacy) VANCOMYCIN PER PHARMACY PER PROTOCOL XX ; Start 01/27/19 at 17:30 Sodium Chloride 1,000 ml @ 75 mls/hr [id number] IV Last administered on 01/31/19at 06:04; Admin Dose 75 MLS/HR; Start 01/28/19 at 14:00 Vancomycin HCl 1.25 gm/Sodium Chloride 250 ml @ 83.333 mls/ hr Q12H IVPB Last administered on 01/31/19at 09:31; Admin Dose 83.333 MLS/HR; Start 01/29/19 at 22:00 SHARATH CONDON MD Jan 31, 2019 17:53
[2019-01-31 19:32] VITALS: BP 110/51; PULSE 82; RESP 18
--- NOTE | 2019-01-31 22:44 | PN ---
Date/Time of Note Date/Time of Note DATE: 01/31/19 TIME: 22:37 Assessment/Plan Lines/Catheters IV [facility] Type [facility]from [facility] Sal[place] Assessment/Plan Chief Complaint/Hosp Course 1. Proximal to mid sigmoid diverticulitis with adjacent free air and loculated fluid consistent with perforation and probable phlegmon/early developing abscess, 4.3 x 3.5 and 2.4 x 1.5 cm. -No emergent surgical intervention necessary at this time we will continue to closely monitor. -Antibiotics per ID -GI f/u -Diet -DC planning with abx > needs outpt f/u for eventual elective resection 2. Abdominal pain: Improved -Pain management 3. Mild leukocytosis: Likely 2/2 #1; resolved -As above 4. Obesity: -diet and exercise optimization -encourage weight loss Thank you Subjective 24 Hr Interval Summary Feels much better. No fevers, chills, sob, congested cough, cp, palpitations, gama, dizziness, nausea, vomiting, diarrhea, dysuria. Labs noted. Exam/Review of Systems Vital Signs Vitals Vital Signs Date Temp Pulse Resp B/P (MAP) Pulse Ox O2 O2 Flow FiO2 Time Delivery Rate 01/31/19 98.1 82 18 110/51 97 19:32 (70) 01/29/19 Room Air 13:13 Intake and Output 01/30/19 01/30/19 01/31/19 1515:00 23:00 07:00 IntakeIntake Total 1720 ml 1280 ml 800 ml BalanceBalance 1720 ml 1280 ml 800 ml Exam Free Text/Dictation Constitutional: alert, oriented Psych: nl mood/affect; No anxiety Head: normocephalic, atraumatic Eyes: nl conjunctiva, EOMI, nl lids, nl sclera ENMT: nl external ears & nose, nl lips & teeth, mucosa pink and moist Neck: supple, non-tender Respiratory: normal air movement; No congested cough, No labored breathing Cardiovascular: regular rate and rhythm, nl pulses; No edema Gastrointestinal: soft, non-distended, min tender (Left lower quadrant-much improved) Genitourinary - Female: nl external genitalia Musculoskeletal: nl extremities to inspection, nl gait and stance; No joint tenderness Extremities: normal pulses; No edema Neurological: nl mental status, nl speech, nl strength Skin: No rash or lesions Lymph: nl lymph nodes Results Result Diagram: 01/31/19 0458 01/31/[address] MD Jan 31, 2019 22:44
[2019-02-01 01:25] VITALS: BP 95/60; PULSE 79; RESP 18
[2019-02-01] MEDS: MEROPENEM 1 GM/50ML(PMX) 50 ML IVPB SCH ×2 (05:46→14:30)
[2019-02-01 07:49] VITALS: BP 96/51; PULSE 69; RESP 15
--- NOTE | 2019-02-01 09:11 | PN ---
Date/Time of Note Date/Time of Note DATE: 02/01/19 TIME: 09:07 Assessment/Plan Lines/Catheters IV Catheter Type (from [facility]): Saline [place] Assessment/Plan Chief Complaint/Hosp Course 1. Proximal to mid sigmoid diverticulitis with adjacent free air and loculated fluid consistent with perforation and probable phlegmon/early developing abscess, 4.3 x 3.5 and 2.4 x 1.5 cm. -No emergent surgical intervention necessary at this time we will continue to closely monitor. -Antibiotics per ID -GI f/u -Diet as tolerated -DC cleared for discharge from surgical standpoint with abx > needs outpt f/u for eventual elective resection (needs colonoscopy and eventual resection) 2. Abdominal pain: Resolved -Pain management 3. Mild leukocytosis: Likely 2/2 #1; resolved -As above 4. Obesity: -diet and exercise optimization -encourage weight loss 5. Adrenal nodule possible adenoma: -Outpatient follow-up Thank you. Patient seen and examined in collaboration with Dr. Cal Frazier. Subjective 24 Hr Interval Summary Feels much better. No abdominal pain. Tolerating diet. + Bowel function. No fevers, chills, sob, congested cough, cp, palpitations, gama, dizziness, nausea, vomiting, diarrhea, dysuria. Exam/Review of Systems Vital Signs Vitals Vital Signs Date Temp Pulse Resp B/P (MAP) Pulse Ox O2 O2 Flow FiO2 Time Delivery Rate 02/01/19 98.6 69 15 96/51 (66) 97 07:49 01/29/19 Room Air 13:13 Intake and Output 01/31/19 01/31/19 02/01/19 1414:59 22:59 06:59 IntakeIntake Total 1490 ml 1580 ml 250 ml BalanceBalance 1490 ml 1580 ml 250 ml Exam Free Text/Dictation Constitutional: alert, oriented Psych: nl mood/affect; No anxiety Head: normocephalic, atraumatic Eyes: nl conjunctiva, EOMI, nl lids, nl sclera ENMT: nl external ears & nose, nl lips & teeth, mucosa pink and moist Neck: supple, non-tender Respiratory: normal air movement; No congested cough, No labored breathing Cardiovascular: regular rate and rhythm, nl pulses; No edema Gastrointestinal: soft, non-distended, non-tender Genitourinary - Female: nl external genitalia Musculoskeletal: nl extremities to inspection, nl gait and stance; No joint tenderness Extremities: normal pulses; No edema Neurological: nl mental status, nl speech, nl strength Skin: No rash or lesions Lymph: nl lymph nodes Results Result Diagram: 02/01/19 0515 02/01/19 0515 EDITH TRENT NP Feb 01, 2019 09:11
[2019-02-01] MEDS: VANCOMYCIN HCL 1.25 GM in SOD CHLORIDE 0.9% 250 ML IVPB SCH (11:44)
--- NOTE | 2019-02-01 12:02 | CONS ---
Assessment/Plan Assessment/Plan Hospital Course (Demo Recall) All noted, no fevers overnight Microbiology: Urine culture negative CT abdomen pelvis on admission revealed mild and marked inflammation of proximal to mid sigmoid colon consistent with acute diverticulitis with perforation and probable phlegmon/early developing abscess measuring 4.3 x 3.5 cm and 2.4 x 1.5 cm that may not be drainable at this time. No gross evidence of bowel obstruction. Please see full report in the chart Repeat CT abdomen: Sigmoid colon diverticulitis, with interval decrease in inflammatory changes and phlegmon. No evidence of abscess Antimicrobials: Vanco Merrem Physical examination: This is a morbidly obese well-developed middle-aged [place] panic woman who is awake in no distress. Head atraumatic normocephalic. Neck is supple chest rise symmetrical breath sounds diminished bases. Heart: S1-S2. Abdomen obese soft bowel sounds hypoactive. Extremities without cyanosis Assessment: 1. Acute perforated diverticulitis 2. Morbid obesity Plan: Stable, cleared for dc by surgery, ok dc on oral Augmentin 875 mg bid for 10 more days, f/u with surgery OP Consultation Date/Type/Reason Admit Date/Time Jan 26, 2019 at 13:51 Initial Consult Date 01/26/19 Type of Consult id Requesting Provider: [place] GMOEZ Date/Time of Note DATE: 02/01/19 TIME: 12:00 Exam/Review of Systems Exam Vitals Vital Signs Date Temp Pulse Resp B/P (MAP) Pulse Ox O2 O2 Flow FiO2 Time Delivery Rate 02/01/19 98.6 69 15 96/51 (66) 97 07:49 01/29/19 Room Air 13:13 Intake and Output 01/31/19 01/31/19 02/01/19 1515:00 23:00 07:00 IntakeIntake Total 1490 ml 1580 ml 250 ml BalanceBalance 1490 ml 1580 ml 250 ml Results Result Diagram: 02/01/19 0515 02/01/19 0515 Results 24hrs Laboratory Tests Test 02/01/19 05:15 White Blood Count 6.2 Red Blood Count 3.96 L Hemoglobin 11.5 L Hematocrit 34.0 L Mean Corpuscular Volume 85.9 Mean Corpuscular Hemoglobin 29.0 Mean Corpuscular Hemoglobin Concent 33.8 Red Cell Distribution Width 12.3 Platelet Count 280 Mean Platelet Volume 9.6 Immature Granulocytes % 0.600 H Neutrophils % 47.4 Lymphocytes % 37.2 Monocytes % 7.6 Eosinophils % 6.6 Basophils % 0.6 Nucleated Red Blood Cells % 0.0 Immature Granulocytes # 0.040 H Neutrophils # 2.9 Lymphocytes # 2.3 Monocytes # 0.5 Eosinophils # 0.4 Basophils # 0.0 Nucleated Red Blood Cells # 0.0 Sodium Level 143 Potassium Level 3.3 L Chloride Level 110 Carbon Dioxide Level 26 Anion Gap 7 Blood Urea Nitrogen 6 L Creatinine 0.45 Est Glomerular Filtrat Rate mL/min > 60 Glucose Level 90 Calcium Level 9.0 Medications Medication Current Medications IV Flush (NS 3 ml) 3 ml PER PROTOCOL IV ; Start 01/26/19 at 15:00 Ondansetron HCl (Zofran Inj) 4 mg Q6H PRN IV NAUSEA/VOMITING; Start 01/26/19 at 15:00 Acetaminophen (Tylenol Tab) 650 mg Q6H PRN PO .PAIN 1-3 OR TEMP; Start 01/26/19 at 15:00 Acetaminophen/ Hydrocodone Bitart ([place] (5/325)) 1 tab Q6H PRN PO .MOD PAIN 4- 6 Last administered on 01/28/19at 18:50; Admin Dose 1 TAB; Start 01/26/19 at 15:00 Morphine Sulfate (morphine) 2 mg Q4H PRN IV .SEVERE PAIN 7-10 Last administered on 01/27/19at 21:48; Admin Dose 2 MG; Start 01/26/19 at 15:00 Docusate Sodium (Colace) 100 mg Q12H PRN PO .CONSTIPATION; Start 01/26/19 at 15:00 Magnesium Hydroxide (Milk Of Mag) 30 ml DAILY PRN PO .CONSTIPATION; Start 01/26/19 at 15:00 Lorazepam (Ativan) 0.5 mg Q6H PRN IV ANXIETY; Start 01/26/19 at 15:00 Albuterol/ Ipratropium (Duoneb) 3 ml Q4H RESP THERAPY PRN HHN SHORTNESS OF BREATH; Start 01/26/19 at 15:00 Hydralazine HCl (Apresoline) 10 mg Q6H PRN IV ELEVATED BLOOD PRESSURE; Start 01/26/19 at 15:00 Nitroglycerin (Nitroglycerin (Sl Tab) 0.4 Mg) 1 tab Q5M PRN SL ANGINA; Start 01/26/19 at 15:00 Meropenem/Sodium Chloride 50 ml @ 100 mls/hr Q8 IVPB Last administered on 02/01/19at 05:46; Admin Dose 100 MLS/HR; Start 01/27/19 at 22:00 Vancomycin HCl (Vanco Iv Per Pharmacy) VANCOMYCIN PER PHARMACY PER PROTOCOL XX ; Start 01/27/19 at 17:30 Vancomycin HCl 1.25 gm/Sodium Chloride 250 ml @ 83.333 mls/ hr Q12H IVPB Last administered on 02/01/19at 11:44; Admin Dose 83.333 MLS/HR; Start 01/29/19 at 22:00 KOKO CALDERON NP Feb 01, 2019 12:02
[2019-02-01] MEDS ORDERED: HYDR-3601 PO (12:20)
[2019-02-01] MEDS ORDERED: AMOX1TAB10 PO (12:20)
--- NOTE | 2019-02-01 12:24 | PDOCDIS ---
Discharge Instructions DIAGNOSIS Discharge Diagnosis Diverticulitis with pericolic abscess CONDITION [id number] Patient Condition: [id number] Fair HOME CARE INSTRUCTIONS: [id number] Diet Instructions: [id number] Regular ACTIVITY: [id number] Activity Restrictions: [id number] No Restrictions FOLLOW UP/APPOINTMENTS Follow-up Plan 1. Take 10 more days of Augmentin as prescribed. 2. Take ibuprofen or tylenol for pain. For severe pain, take [place]. 3. Follow up with Dr. Frazier as scheduled. 4. Schedule an appointment with Dr. Jiménez for colonoscopy in about 3 months. ([id number] [facility] [id number], [place] [address]). SHARATH CONDON MD Feb 01, 2019 12:24
[2019-02-01] MEDS ORDERED: POTASSIUM CHLORIDE 20 MEQ POWDER FOR ORAL SOLN PO ONE (13:00)
[2019-02-01 14:23] VITALS: BP 106/70; PULSE 69; RESP 16
--- NOTE | 2019-02-01 17:01 | DS ---
Date/Time of Note Date/Time of Note DATE: 02/01/19 TIME: 16:59 Discharge Summary Admission/Discharge Info Admit Date/Time Jan 26, 2019 at 13:51 Discharge Date/Time Feb 01, 2019 at 16:55 Discharge Diagnosis Diverticulitis with pericolic abscess Patient Condition: Good Consults Dr. Frazier, general surgery Dr. Jiménez, gastroenterology Dr. Culver, infectious disease Procedures None Hx of Present Illness HISTORY OF PRESENT ILLNESS: A 48-year-old female with past medical history of prior diverticulitis, cholecystectomy and who has been having abdomina l pain. The patient says the symptoms have been going on for about the last 6 to 7 days. She has noted the pain in the left lower quadrant area. Denies any fevers or chills. No upper or lower GI bleeding. She has had some mild nausea with some nonbilious, nonbloody vomiting symptoms occasionally. No chest pain or shortness of breath. No diarrhea or constipation. When she came in today, she was found on CT scan of abdomen and pelvis with marked inflammation involving the proximal to mid sigmoid colon with diverticula and adjacent fat stranding and free fluid consistent with acute diverticulitis. There was also adjacent free air and loculated fluid consistent with perforation and probable phlegmon, early developing abscess measuring 4.3 x 3.5 cm as well as another one of 2.4 x 1.5 cm and a call was made out to the general surgeon to come evaluate the patient for that. The patient was also given IV antibiotics and pain control medications and IV fluids in the ER. PAST MEDICAL HISTORY: As above. HOME MEDICATIONS: Unknown. ALLERGIES: NO KNOWN DRUG ALLERGIES. PAST SURGICAL HISTORY: Cholecystectomy, in the past. SOCIAL HISTORY: Occasional alcohol use. Denies any IV drug abuse or smoking history. FAMILY HISTORY: Noncontributory. Hospital Course The above specialists were consulted. Per Dr. Frazier, no need for urgent surgery. The patient was restarted on diet which she tolerated well, and pain resolved. Prior to discharge the CT was repeated showing interval resolution of the previously seen abscess. Patient discharged on oral antibiotics and analgesia. Home Meds Active Scripts Amoxicillin/Potassium Clav (Amox-Clav 875-125 mg Tablet) 875-125 mg Tab, 1 TAB PO BID, #20 TAB Prov:SHARATH CONDON MD 02/01/19 Hydrocodone Bit-Acetaminophen (Hydrocodone Bit-APAP) 5-325MG Tablet, 1 TAB PO Q6H PRN for .MOD PAIN 4-6, #7 TAB Prov:SHARATH CONDON MD 02/01/19 Discontinued Reported Medications [No Meds] No Conflict Check 05/12/14 Discontinued Scripts Cephalexin* (Keflex*) 500 Mg Capsule, 500 MG PO QID for 7 Days, CAP Prov:MARY CRANDALL PA-C 02/21/18 Phenazopyridine Hcl* (Pyridium*) 100 Mg Tab, 100 MG PO TID PRN for URINARY PAIN, #8 TAB Prov:MARY CRANDALL PA-C 02/21/18 Follow-up Plan 1. Take 10 more days of Augmentin as prescribed. 2. Take ibuprofen or tylenol for pain. For severe pain, take [place]. 3. Follow up with Dr. Frazier as scheduled. 4. Schedule an appointment with Dr. Jiménez for colonoscopy in about 3 months. ([id number] [facility] [id number], [place] [address]). Primary Care Provider Care Physician No Primary Time spent on discharge: > 30 minutes Pending Labs Laboratory Tests Test 02/01/19 05:15 White Blood Count 6.2 10^3/ul (4.8-10.8) Red Blood Count 3.96 10^6/ul (4.20-5.40) Hemoglobin 11.5 g/dl (12.0-16.0) Hematocrit 34.0 % (37.0-47.0) Mean Corpuscular Volume 85.9 fl (82.0-101.0) Mean Corpuscular Hemoglobin 29.0 pg (29.0-33.0) Mean Corpuscular Hemoglobin Concent 33.8 g/dl (32.0-37.0) Red Cell Distribution Width 12.3 % (11.5-14.5) Platelet Count 280 10^3/UL (140-415) Mean Platelet Volume 9.6 fl (7.4-10.4) Immature Granulocytes % 0.600 % (0.001-0.429) Neutrophils % 47.4 % (39.0-77.0) Lymphocytes % 37.2 % (15.0-51.0) Monocytes % 7.6 % (0.0-11.0) Eosinophils % 6.6 % (0.0-7.0) Basophils % 0.6 % (0.0-2.0) Nucleated Red Blood Cells % 0.0 /100WBC (0.0-0.0) Immature Granulocytes # 0.040 10^3/ul (0.0-0.031) Neutrophils # 2.9 10^3/ul (1.6-7.5) Lymphocytes # 2.3 10^3/ul (0.8-2.9) Monocytes # 0.5 10^3/ul (0.3-0.9) Eosinophils # 0.4 10^3/ul (0.0-0.5) Basophils # 0.0 10^3/ul (0.0-0.1) Nucleated Red Blood Cells # 0.0 10^3/ul (0.0-0.0) Sodium Level 143 mmol/L (135-144) Potassium Level 3.3 mmol/L (3.5-5.1) Chloride Level 110 mmol/L (97-110) Carbon Dioxide Level 26 mmol/L (21-31) Anion Gap 7 (5-13) Blood Urea Nitrogen 6 mg/dl (7-20) Creatinine 0.45 mg/dl (0.44-1.00) Est Glomerular Filtrat Rate mL/min > 60 mL/min (>60) Glucose Level 90 mg/dl (70-220) Calcium Level 9.0 mg/dl (8.4-10.2) SHARATH CONDON MD Feb 01, 2019 17:01
== END 2019-02-01 16:55 | disposition home or self-care (01) | DRG 392 ==
LOC: E/R 09:06 → 2NE 13:51
PROVIDERS: ADMIT Hospitalist; ATTEND Internal Medicine
PROC: 3E0234Z Introduction of Serum, Toxoid and Vaccine into Muscle, Percutaneous Approach (ICD-10-PCS; principal; 2019-01-28)
DX: K57.20 Diverticulitis of large intestine with perforation and abscess without bleeding (principal); I10 Essential (primary) hypertension; Z68.37 Body mass index [BMI] 37.0-37.9, adult; E66.01 Morbid (severe) obesity due to excess calories; Z90.49 Acquired absence of other specified parts of digestive tract; Z23 Encounter for immunization
CPT/HCPCS: 36415; 74176; 74177; 80048; 80053; 80061; 80202; 81003; 81025; 83036; 83690; 83735; 84100; 84439; 84443; 85025; 85610; 85730; 87086; 90686; 96374; 96375; 97161; J1644; J2185; J2270; J2543; J3370; J7030; J7040; J7050; Q9967

== ENCOUNTER 2019-05-23 08:50 | Day surgery (SDC) | payer MEDICAID, OTHER ==
[~2019-05-23] VITALS: Ht 157.5 cm; Wt 87.5 kg
[2019-05-23] VITALS (13 sets, daily range): BP systolic 86–111; BP diastolic 65–73; PULSE 54–68; RESP 10–24; Ht 157.5 cm; Wt 87.5 kg
[~2019-05-23 08:50] MED LIST changes: +AMOX1TAB10 PO; -CEPH-443 PO; +HYDR-3601 PO; -NO MEDS; -PHEN-537 PO
[2019-05-23] MEDS ORDERED: MIDAZOLAM 1 MG/ML 2 ML INJ ONE ×2 (12:01)
[2019-05-23] MEDS ORDERED: FENTAnyl 50 MCG/ML VIAL ONE (12:02)
== END 2019-05-23 13:55 | disposition home or self-care (01) ==
LOC: GIL 08:50
PROVIDERS: ATTEND Internal Medicine Gastroenterology
DX: Z12.11 Encounter for screening for malignant neoplasm of colon (principal)
CPT/HCPCS: 45378; 84703; J2250; J3010